=== PATIENT | male | born 1935 | race Caucasian/White ===

== ENCOUNTER 2016-08-11 08:23 | Inpatient (IN) | payer MEDICARE, OTHER ==
[2016-08-10] MEDS: INSULIN ASPART SUPPLEMENTAL SCALE SQ SCH (00:30)
[2016-08-11] VITALS (18 sets, daily range): BP systolic 108–152; BP diastolic 47–88; PULSE 60–118; RESP 16–20; TEMP 97.9–98.2; O2SAT 97–100
[~2016-08-11] VITALS: Ht 170.2 cm; Wt 59.8 kg
[2016-08-11] MEDS ORDERED: BENA20TA4 PO (08:41)
[2016-08-11] MEDS ORDERED: ALBUAER3 INH (08:41)
[2016-08-11] MEDS ORDERED: GLYB1TAB94 PO (08:41)
[2016-08-11] MEDS ORDERED: ROSU10 PO (08:41)
[2016-08-11] MEDS ORDERED: FERR1TAB36 PO (08:41)
[2016-08-11] MEDS ORDERED: LEVE500 PO (08:41)
[2016-08-11] MEDS ORDERED: TRAD5TAB PO (08:41)
[2016-08-11] MEDS ORDERED: TAMS0.4C4 PO (08:41)
[2016-08-11] MEDS ORDERED: NAPR500T PO (08:41)
[2016-08-11] MEDS ORDERED: NEXI40CA PO (08:41)
[2016-08-11] MEDS ORDERED: ASPI81CH CHEW (08:41)
[2016-08-11] MEDS ORDERED: KETOROLAC TROMETHAMINE 30 MG/ML (IVP) VIAL IV PUSH ONE (08:45)
--- NOTE | 2016-08-11 08:45 | PD ---
HPI Chief Complaint: Fall Time Seen by Provider: 08:27 Travel History International Travel<30 days: No Contact w/Intl Traveler<30days: No Traveled to known affect area: No History of Present Illness HPI The patient is a 80-year-old male who presents emergency department via EMS after a fall at home. 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 The patient does have a history of chronic vertigo/dizziness, however, this morning lost his balance and fell 4 striking his head. According to EMS patient had no loss consciousness but complained of neck pain. The patient does have a history of chronic low back pain without any acute changes, according to EMS. The patient does complain of pain located over the posterior aspect of the neck that radiates into the left shoulder. He denies any chest pain, shortness breath, nausea, vomiting, or abdominal pain. Symptoms are moderate, exacerbated after falling, there are no current alleviating factors. PFSH Past Medical History Narrative Medical Hypertension, GERD, hyperlipidemia, diabetes Past Surgical History Narrative Surgical Noncontributory Social History Tobacco Use: No Allergies-Medications (Allergen,Severity, Reaction): Coded Allergies: Penicillin (Verified Allergy, Unknown, 08/11/16) Sudafed (Verified Allergy, Unknown, 08/11/16) Reported Meds & Prescriptions Reported Meds & Active Scripts Active Reported Meclizine (Meclizine HCl) 25 Mg Tab 25 Mg PO BID PRN Ativan (Lorazepam) 0.5 Mg Tab 0.5 Mg PO HS Pioglitazone (Pioglitazone HCl) 45 Mg Tab 45 Mg PO DAILY Tramadol (Tramadol HCl) 50 Mg Tab 50 Mg PO BID Pataday Opth Drops (Olopatadine HCl) 0.2 % Drops 1 Drop EACH EYE DAILY Zoloft (Sertraline HCl) 50 Mg Tab 50 Mg PO HS Metoprolol Tartrate 25 Mg Tab 25 Mg PO DAILY Proair Hfa 8.5 GM Inh (Albuterol Sulfate) 90 Mcg/Act Aer 2 Puff INH Q4-6H PRN 108 mcg/actuation Iron (Ferrous Sulfate) 325 Mg Tab 325 Mg PO DAILY Take Naproxen 500 Mg Tab 500 Mg PO BID Tamsulosin (Tamsulosin HCl) 0.4 Mg Cap 0.4 Mg PO HS Keppra (Levetiracetam) 500 Mg Tab 500 Mg PO BID Benazepril-Hydrochlorothiazide 20-25 Mg Tab 1 Tab PO DAILY Aspirin 81 Mg Chew 81 Mg CHEW DAILY Glyburide-Metformin 5-500 Mg Tab 2 Tab PO BID Take with a meal Crestor (Rosuvastatin Calcium) 10 Mg Tab 10 Mg PO DAILY Tradjenta (Linagliptin) 5 Mg Tab 5 Mg PO DAILY Nexium (Esomeprazole DR) 40 Mg Capdr 40 Mg PO DAILY Review of Systems Except as stated in HPI: all other systems reviewed are Neg HENT: Positive: Neck Pain, No: Headaches Cardiovascular: No: Chest Pain or Discomfort Respiratory: No: Shortness of Breath Gastrointestinal: No: Nausea, Vomiting, Abdominal Pain Musculoskeletal: Positive: Pain (chronic back pain) Physical Exam Narrative GENERAL: Awake, alert, 80-year-old male who appears his stated age and is in no acute respiratory distress. Patient initially was evaluated on a backboard with cervical collar in place. SKIN: Focused skin assessment warm/dry. HEAD: Atraumatic. Normocephalic. EYES: Pupils equal and round. No scleral icterus. No injection or drainage. ENT: No nasal bleeding or discharge. Mucous membranes pink and moist. NECK: Trachea midline. No JVD. Cervical collar in place. Tender along the paravertebral muscles and midline of the cervical spine. CARDIOVASCULAR: Irregularly irregular, tachycardic with a heart rate in the 140s. RESPIRATORY: No accessory muscle use. Clear to auscultation. Breath sounds equal bilaterally. GASTROINTESTINAL: Abdomen soft, non-tender, nondistended. No rebound tenderness. MUSCULOSKELETAL: No obvious deformities. No clubbing. No cyanosis. No edema. I'm able to fully flex and extend the upper and lower extremities passively. Blower Mechanic strength is 5 out of 5. Plantar flexion is 5 out of 5. Back: Mild tenderness mid thoracic region. No tenderness of the lumbar region. NEUROLOGICAL: Awake and alert. No obvious cranial nerve deficits. Motor grossly within normal limits. Normal speech. Thai-speaking. Follows commands without difficulty. PSYCHIATRIC: Appropriate mood and affect; insight and judgment normal. Data Data Last Documented VS Vital Signs Date Time Temp Pulse Resp B/P Pulse Ox O2 Delivery O2 Flow Rate FiO2 08/11/16 09:57 94 17 134/76 97 Room Air 08/11/16 08:[address] Cerv Spine W/O Contrast (08/11/16 ) Ct Brain W/O Iv Contrast(Rout) (08/11/16 ) Chest, Single Ap (08/11/16 ) Spine, Thoracic - Lateral Only (08/11/16 ) Pelvis, Ap Only (Routine) (08/11/16 ) Complete Blood Count With Diff (08/11/16 08:33) Basic Metabolic Panel (Bmp) (08/11/16 08:33) Electrocardiogram (08/11/16 ) Ketorolac Inj (Toradol Inj) (08/11/16 08:45) Magnesium (Mg) (08/11/16 08:48) Hepatic Functional Panel (08/11/16 08:48) Troponin I (08/11/16 08:48) Creatine Kinase (Cpk) (08/11/16 08:48) Diltiazem Inj (Cardizem Inj) (08/11/16 09:00) Diltiazem Inj (Cardizem Inj) (08/11/16 09:00) Sodium Chloride 0.9% Flush (Ns Flush) (08/11/16 09:00) Admit Order (Ed Use Only) (08/11/16 10:34) Labs Laboratory Tests Test 08/11/16 08:50 White Blood Count 6.0 TH/MM3 Red Blood Count 3.01 MIL/MM3 Hemoglobin 8.8 GM/DL Hematocrit 25.6 % Mean Corpuscular Volume 85.2 FL Mean Corpuscular Hemoglobin 29.1 PG Mean Corpuscular Hemoglobin 34.1 % Concent Red Cell Distribution Width 14.1 % Platelet Count 282 TH/MM3 Mean Platelet Volume 8.5 FL Neutrophils (%) (Auto) 80.9 % Lymphocytes (%) (Auto) 10.7 % Monocytes (%) (Auto) 7.5 % Eosinophils (%) (Auto) 0.5 % Basophils (%) (Auto) 0.4 % Neutrophils # (Auto) 4.8 TH/MM3 Lymphocytes # (Auto) 0.6 TH/MM3 Monocytes # (Auto) 0.4 TH/MM3 Eosinophils # (Auto) 0.0 TH/MM3 Basophils # (Auto) 0.0 TH/MM3 CBC Comment DIFF FINAL Differential Comment Sodium Level 133 MEQ/L Potassium Level 4.0 MEQ/L Chloride Level 97 MEQ/L Carbon Dioxide Level 26.1 MEQ/L Anion Gap 10 MEQ/L Blood Urea Nitrogen 19 MG/DL Creatinine 1.04 MG/DL Estimat Glomerular Filtration 69 ML/MIN Rate Random Glucose 86 MG/DL Calcium Level 9.5 MG/DL Magnesium Level 1.6 MG/DL Total Bilirubin 0.3 MG/DL Direct Bilirubin 0.1 MG/DL Indirect Bilirubin 0.2 MG/DL Aspartate Amino Transf 21 U/L (AST/SGOT) Alanine Aminotransferase 16 U/L (ALT/SGPT) Alkaline Phosphatase 55 U/L Total Creatine Kinase 114 U/L Troponin I LESS THAN 0.02 NG/ML Total Protein 7.4 GM/DL Albumin 4.4 GM/DL MDM Medical Decision Making Medical Screen Exam Complete: Yes Emergency Medical Condition: Yes Medical Record Reviewed: Yes Interpretation(s) EKG reveals atrial flutter with RVR, rate 153. RSR prime in V1 consistent with a right bundle-branch block, QRS duration 146 ms. Laboratory Tests Test 08/11/16 08:50 White Blood Count 6.0 TH/MM3 Red Blood Count 3.01 MIL/MM3 Hemoglobin 8.8 GM/DL Hematocrit 25.6 % Mean Corpuscular Volume 85.2 FL Mean Corpuscular Hemoglobin 29.1 PG Mean Corpuscular Hemoglobin 34.1 % Concent Red Cell Distribution Width 14.1 % Platelet Count 282 TH/MM3 Mean Platelet Volume 8.5 FL Neutrophils (%) (Auto) 80.9 % Lymphocytes (%) (Auto) 10.7 % Monocytes (%) (Auto) 7.5 % Eosinophils (%) (Auto) 0.5 % Basophils (%) (Auto) 0.4 % Neutrophils # (Auto) 4.8 TH/MM3 Lymphocytes # (Auto) 0.6 TH/MM3 Monocytes # (Auto) 0.4 TH/MM3 Eosinophils # (Auto) 0.0 TH/MM3 Basophils # (Auto) 0.0 TH/MM3 CBC Comment DIFF FINAL Differential Comment Sodium Level 133 MEQ/L Potassium Level 4.0 MEQ/L Chloride Level 97 MEQ/L Carbon Dioxide Level 26.1 MEQ/L Anion Gap 10 MEQ/L Blood Urea Nitrogen 19 MG/DL Creatinine 1.04 MG/DL Estimat Glomerular Filtration 69 ML/MIN Rate Random Glucose 86 MG/DL Calcium Level 9.5 MG/DL Magnesium Level 1.6 MG/DL Total Bilirubin 0.3 MG/DL Direct Bilirubin 0.1 MG/DL Indirect Bilirubin 0.2 MG/DL Aspartate Amino Transf 21 U/L (AST/SGOT) Alanine Aminotransferase 16 U/L (ALT/SGPT) Alkaline Phosphatase 55 U/L Total Creatine Kinase 114 U/L Troponin I LESS THAN 0.02 NG/ML Total Protein 7.4 GM/DL Albumin 4.4 GM/DL CT of the brain reveals negative trauma CT. Post surgical changes are noted. CT cervical spine reveals negative trauma CT. Last Impressions Thoracic Spine X-Ray 08/11/16 0000 Signed Impressions: Service Date/Time: Thursday, August 11, 2016 09:27 - CONCLUSION: 1. Mild compression fracture deformity of the T7 vertebral body of indeterminate age. There is no retropulsion. 2. Osteopenia and minimal degenerative change. Mateo Alberts MD Pelvis X-Ray 08/11/16 0000 Signed Impressions: Service Date/Time: Thursday, August 11, 2016 09:23 - CONCLUSION: Negative trauma study. Mateo Alberts MD Head CT 08/11/16 0000 Signed Impressions: Service Date/Time: Thursday, August 11, 2016 09:38 - CONCLUSION: Negative trauma CT. Postsurgical changes are noted. Mateo Alberts MD Chest X-Ray 08/11/16 0000 Signed Impressions: Service Date/Time: Thursday, August 11, 2016 09:24 - CONCLUSION: No acute disease. Mateo Alberts MD Cervical Spine CT 08/11/16 0000 Signed Impressions: Service Date/Time: Thursday, August 11, 2016 09:38 - CONCLUSION: Negative trauma CT. Mateo Alberts MD Differential Diagnosis Differential diagnosis includes mechanical fall, closed head injury, joint cranial hemorrhage, cervical fracture, thoracic spine fracture, pelvic rami fracture, hyponatremia, dehydration, mechanical fall, A. fib with RVR, syncope, arrhythmia. Narrative Course The patient was log rolled off the backboard, back was inspected. Cervical collar was maintained. IV was established, labs are drawn and sent, and the patient was placed on cardiac telemetry monitoring and continuous pulse oximetry monitoring. The patient was administered Toradol 50 mg intravenously for pain. CT of the brain and cervical spine were ordered. X-ray of the chest , thoracic spine, and pelvis were ordered. Patient was placed on a monitor, patient's heart rate was in the 140s, appeared to be A. fib with RVR. EKG was ordered and interpreted. Patient was administered Cardizem 15 mg intravenously and placed on a Cardizem drip. The patient's heart rate maintained between 90 and [address] the brain and cervical spine are negative except for postoperative changes of the brain. X-rays are unremarkable, except for old appearing compression fracture in the thoracic region. Patient does have a history of previous craniotomy, appears remote, therefore, patient was administered aspirin a were milligrams orally. The on-call medical service was paged for admission. I had a discussion with the son, he states the patient's surgery was performed last year in [place]. The patient does take a baby aspirin daily. After discussion with the patient, he does not believe the patient has a history of atrial fibrillation, appears to be new onset A. fib. The patient will need echocardiogram. The patient will also need a discussion about anticoagulation, aspirin versus Coumadin/Pradaxa/eliquis/Xarelto, unsure if patient is a candidate for further anticoagulation with history of craniotomy. I discussed the patient with Dr. Arguello, patient will be admitted to the teaching service. Critical Care Narrative Aggregate critical care time was 45 minutes. Time to perform other separately billable procedures was not included in the critical care time. My time did not include minutes spent treating any other patients simultaneously or on activities that did not directly contribute to the patient's treatment. The services I provided to this patient were to treat and/or prevent clinically significant deterioration that could result in: Anoxia, hypoxia, arrhythmia, to just heart failure, cardiomyopathy. I provided critical care services requiring my management, as noted below: Chart data review, documentation time, medication orders and management, vital sign assessments/reviewing monitor data, ordering and reviewing lab tests, ordering and interpreting/reviewing x-rays and diagnostic studies, care of the patient and discussion of the patient with the admitting physicians. Physician Communication Physician Communication The on-call medical service was paged for admission. I discussed the patient with Dr. Arguello who agrees with admission. Diagnosis Primary Impression: Atrial fibrillation with RVR Additional Impressions: Fall Qualified Code: W19.XXXA - Fall, initial encounter Neck pain Admitting Information Admitting Physician Requests: Admit Condition: Stable Av Wesley MD Aug 11, 2016 08:45
[2016-08-11] MEDS ORDERED: SODIUM CHLORIDE 0.9% FLUSH 10 ML FLUSH IVF PRN (09:00)
[2016-08-11] MEDS ORDERED: DILTIAZEM INJ 125 MG in SODIUM CHLORIDE 0.9% INJ 100 ML IV SCH (09:00)
[2016-08-11] MEDS ORDERED: DILTIAZEM HCL 25 MG/5 ML VIAL IV ONE (09:00)
[2016-08-11 09:11] LABS: AUTOMATED NEUTROPHIL # 4.8 TH/MM3 (1.8-7.7); BASOPHIL % 0.4 % (0.0-2.0); EOSINOPHIL % 0.5 % (0.0-4.0); HEMATOCRIT 25.6 % (39.0-51.0); HEMO FLAGS DIFF FINAL; LYMPH % 10.7 % (9.0-44.0); LYMPHOCYTE # 0.6 TH/MM3 (1.0-4.8); MEAN CELL VOLUME 85.2 FL (80.0-100.0); MEAN CORPUSCULAR HEMOGLOBIN 29.1 PG (27.0-34.0); MEAN CORPUSCULAR HGB CONC 34.1 % (32.0-36.0); MONO % 7.5 % (0.0-8.0); NEUT % 80.9 % (16.0-70.0); PLATELET COUNT 282 TH/MM3 (150-450); RED BLOOD COUNT 3.01 MIL/MM3 (4.50-5.90); RED CELL DISTRIBUTION WIDTH 14.1 % (11.6-17.2)
[2016-08-11 09:29] LABS: BICARBONATE 26.1 MEQ/L (21.0-32.0)
[2016-08-11] MEDS ORDERED: MECL-62 PO (09:29)
[2016-08-11] MEDS ORDERED: LORA-392 PO (09:29)
[2016-08-11] MEDS ORDERED: ZOLO50TA PO (09:29)
[2016-08-11] MEDS ORDERED: PIOG45TA3 PO (09:29)
[2016-08-11] MEDS ORDERED: METO25TA3 PO (09:29)
[2016-08-11] MEDS ORDERED: PATA0.2S EACH EYE (09:29)
[2016-08-11] MEDS ORDERED: POTA10TA2 PO (09:29)
[2016-08-11] MEDS ORDERED: TRAM50TA PO (09:29)
[2016-08-11 09:39] LABS: ALKALINE PHOSPHATASE 55 U/L (45-117); ALT (GPT) 16 U/L (12-78); AST (GOT) 21 U/L (15-37); CREATINE KINASE 114 U/L (39-308); INDIRECT BILIRUBIN 0.2 MG/DL (0.0-0.8); MAGNESIUM 1.6 MG/DL (1.5-2.5); TOTAL BILIRUBIN ADULT 0.3 MG/DL (0.2-1.0)
--- NOTE | 2016-08-11 10:04 | EKG ---
Date Performed: 08/11/2016 Time Performed: 08:52:11 PTAGE: 80 years EKG: ProbableATRIAL FLUTTER/TACHYCARDIA WITH RAPID VENTRICULAR RESPONSE RIGHT BUNDLE BRANCH BLO CK ABNORMAL ECG NO PREVIOUS TRACING DOCTOR: Timothy Garrido Interpretating Date/Time 08/11/2016 10:03:41
--- NOTE | 2016-08-11 10:07 | RADRPT ---
EXAM DATE/TIME: 08/11/2016 09:38 [facility] COMPARISON: No previous studies available for comparison. INDICATIONS : Fall, hit head and states neck pain. RADIATION DOSE: 36.65 CTDIvol (mGy) MEDICAL HISTORY : Unknown SURGICAL HISTORY : Unknown ENCOUNTER: Initial ACUITY: 1 day PAIN SCALE: 3/10 LOCATION: cranial TECHNIQUE: Multiple contiguous axial images were obtained of the head. Using automated exposure control and adj ustment of the mA and/or kV according to patient size, radiation dose was kept as low as reasonably a chievable to obtain optimal diagnostic quality images. FINDINGS: CEREBRUM: The ventricles are normal for age. No evidence of midline shift, mass lesion, hemorrhage or acute in farction. No extra-axial fluid collections are seen. POSTERIOR FOSSA: The cerebellum and brainstem are intact. The 4th ventricle is midline. The cerebellopontine angle i s unremarkable. EXTRACRANIAL: The visualized portion of the orbits is intact. SKULL: The calvaria is intact. No evidence of skull fracture. The patient is status post left frontal parie taqueria craniotomy. CONCLUSION: Negative trauma CT. Postsurgical changes are noted. Mateo Alberts MD on August 11, 2016 at 10:01 Board Certified Radiologist. This report was verified electronically.
--- NOTE | 2016-08-11 10:09 | RADRPT ---
EXAM DATE/TIME: 08/11/2016 09:38 [facility] COMPARISON: No previous studies available for comparison. INDICATIONS : Fall, hit head and states neck pain. RADIATION DOSE: 17.78 CTDIvol (mGy) MEDICAL HISTORY : Unknown SURGICAL HISTORY : Unknown ENCOUNTER: Initial ACUITY: 1 day PAIN SCALE: 3/10 LOCATION: neck TECHNIQUE: Volumetric scanning of the cervical spine was performed. Multiplanar reconstructions in the sagittal, coronal and oblique axial planes were performed. Using automated exposure control and adjustment o f the mA and/or kV according to patient size, radiation dose was kept as low as reasonably achievable to obtain optimal diagnostic quality images. FINDINGS: The sagittal reconstructions demonstrate normal alignment and normal prevertebral soft tissues. The d ens is intact and there is a normal atlantoaxial relationship. Degenerative changes present at the C6 -7 level with disc space narrowing and mild hypertrophic change. There are degenerative changes invol ving the left axilla joint. The axial images demonstrate that the vertebral bodies and posterior elements are intact. The soft ti ssues are within normal limits. There is no evidence of acute fracture or malalignment. CONCLUSION: Negative trauma CT. Mateo Alberts MD on August 11, 2016 at 10:06 Board Certified Radiologist. This report was verified electronically.
--- NOTE | 2016-08-11 10:58 | HHI.HP ---
[facility] Service Family Medicine Primary Care Physician Rosaline Hodge M.D. Admission Diagnosis A. cliff with RVR, neck pain, mechanical fall Diagnoses: International Travel<30 Days: No Contact w/Intl Traveler<30days: No Known Affected Area: No History of Present Illness 80-year-old German-speaking male with history of diabetes, asthma, history of convulsions, presents to [place] after falling. Patient is a poor historian. Son is at the bedside and provides additional history. Patient fell after waking up this morning around 7:30 AM. He was laying in bed, he felt normal. After taking 2 steps toward the bathroom, he started to feel dizzy. He states he felt like his heart was racing. He was able to make it an additional 10-13 steps were collapsing. He put his hands in front of him to brace him from the fall. Denies losing consciousness. No bowel or bladder incontinence. No tongue biting. On the ground, he called 911. He was only on the ground for only a few moments before getting up and walking to the kitchen. In the kitchen , he took 2 puffs from his asthma inhaler and drank some cold water. He was feeling normal during this time. He is , however he lives by himself and no one witnessed this event. He denies any tremors or seizure-like activity. He had a similar episode a week or 2 ago where he felt dizzy, and then he recovered to his normal self. He does report hitting his head. He does have mild pain on the back of his neck radiating to his left shoulder. However, he denies chest pain, shortness of breath, nausea, vomiting, fever, chills, abdominal pain. (Montrell Arguello MD R2) Review of Systems ROS Limitations: Poor Historian Constitutional: DENIES: Fever, Chills Eyes: DENIES: Blurred vision, Diplopia Ears, nose, mouth, throat: COMPLAINS OF: Vertigo, DENIES: Running Nose Respiratory: COMPLAINS OF: Shortness of breath, DENIES: Cough Cardiovascular: COMPLAINS OF: Palpitations, Syncope, DENIES: Chest pain Gastrointestinal: DENIES: Abdominal pain, Black stools, Bloody stools, Constipation, Diarrhea, Nausea, Vomiting (Montrell Arguello MD R2) Past Family Social History Past Medical History Poor historian, not sure about meds or medical history; reviewed meds with patient and son extensively Diabetes Hyperlipidemia Hypertension BPH-on Flomax for 10 years History of convulsions (sees neurologist)-prescribed Keppra Iron deficiency anemia GERD Asthma Past Surgical History Cataract [place] hole (? subdural?)- 2012 Right shoulder (? - 2000) Reported Medications Patient is a poor historian, he brings in a bag of medications but he is not sure what each medication is for. Additionally, he states he left some of his bottles at home. Reported Meds & Active Scripts Active Reported Meclizine (Meclizine HCl) 25 Mg Tab 25 Mg PO BID PRN- NOT TAKING Ativan (Lorazepam) 0.5 Mg Tab 0.5 Mg PO HS- NOT TAKING Pioglitazone (Pioglitazone HCl) 45 Mg Tab 45 Mg PO DAILY- UNSURE if taking Tramadol (Tramadol HCl) 50 Mg Tab 50 Mg PO BID- Pataday Opth Drops (Olopatadine HCl) 0.2 % Drops 1 Drop EACH EYE DAILY Zoloft (Sertraline HCl) 50 Mg Tab 50 Mg PO HS- UNSURE Metoprolol Tartrate 25 Mg Tab 25 Mg PO DAILY-unsure if taking Proair Hfa 8.5 GM Inh (Albuterol Sulfate) 90 Mcg/Act Aer 2 Puff INH Q4-6H PRN 108 mcg/actuation Iron (Ferrous Sulfate) 325 Mg Tab 325 Mg PO DAILY Take Naproxen 500 Mg Tab 500 Mg PO BID- NOT TAKING Tamsulosin (Tamsulosin HCl) 0.4 Mg Cap 0.4 Mg PO HS- Keppra (Levetiracetam) 500 Mg Tab 500 Mg PO BID Benazepril-Hydrochlorothiazide 20-25 Mg Tab 1 Tab PO DAILY Aspirin 81 Mg Chew 81 Mg CHEW DAILY Glyburide-Metformin 5-500 Mg Tab 2 Tab PO BID Take with a meal Crestor (Rosuvastatin Calcium) 10 Mg Tab 10 Mg PO DAILY Tradjenta (Linagliptin) 5 Mg Tab 5 Mg PO DAILY Nexium (Esomeprazole DR) 40 Mg Capdr 40 Mg PO DAILY (Montrell Arguello MD R2) Allergies: Coded Allergies: Penicillin (Verified Allergy, Unknown, 08/11/16) Sudafed (Verified Allergy, Unknown, 08/11/16) Sulfa (Verified Allergy, Unknown, 08/11/16) Active Ordered Medications Active Medications Diltiazem HCl 15 mg 15 mg ONCE ONCE IV Last administered on 08/11/16 09:12; Admin Dose 15 MG; Start 08/11/16 at 09:00; Stop 08/11/16 at 09:01; Status DC Diltiazem HCl/ Sodium Chloride (Cardizem Inj/NS Inj) 125 ml @ 5 mls/hr TITRATE IV Last administered on 08/11/16 10:07; Admin Dose 5 MLS/HR; Start 08/11/16 at 09:00 Ketorolac Tromethamine (Toradol Inj) 15 mg ONCE ONCE IV PUSH Last administered on 08/11/16 09:12; Admin Dose 15 MG; Start 08/11/16 at 08:45; Stop 08/11/16 at 08:46; Status DC Sodium Chloride (NS Flush) 2 ml UNSCH PRN IVF Last administered on 08/11/16 09 :13; Admin Dose 2 ML; Start 08/11/16 at 09:00 Family History Dad- no hx of heart disease or cancer Mom-no history of heart disease Social History Recently moved here 4 months ago from [place]. Tobacco: Quit 20 years ago. Smoked 1 pack per age 17. Alcohol: None Illicits: None (Montrell Arguello MD R2) Physical Exam Vital Signs Vital Signs Date Time Temp Pulse Resp B/P Pulse Ox O2 Delivery O2 Flow Rate FiO2 08/11/16 10:49 97 16 108/55 98 Room Air 08/11/16 10:41 18 08/11/16 09:57 94 17 134/76 97 Room Air 08/11/16 09:40 91 08/11/16 08:42 98.1 118 17 152/80 97 Room Air Physical Exam GENERAL: This is a well-nourished, well-developed patient, in no apparent distress. SKIN: No rashes, ecchymoses or lesions. Cool and dry. HEAD: Atraumatic. Normocephalic. No temporal or scalp tenderness. EYES: Pupils equal round and reactive. Extraocular motions intact. No scleral icterus. No injection or drainage. ENT: Nose without bleeding, purulent drainage or septal hematoma. Throat without erythema, tonsillar hypertrophy or exudate. Uvula midline. Airway patent. NECK: Trachea midline. No JVD or lymphadenopathy. Supple, nontender, no meningeal signs. CARDIOVASCULAR: Regular rate and irregular rhythm RESPIRATORY: Clear to auscultation. Breath sounds equal bilaterally. No wheezes , rales, or rhonchi. GASTROINTESTINAL: Abdomen soft, non-tender, nondistended. No hepato-splenomegaly , or palpable masses. No guarding. MUSCULOSKELETAL: Extremities without clubbing, cyanosis, or edema. No joint tenderness, effusion, or edema noted. No calf tenderness. Negative Homans sign bilaterally. NEUROLOGICAL: Awake and alert. Cranial nerves II through XII intact. Motor and sensory grossly within normal limits. Five out of 5 muscle strength in all muscle groups. Normal speech. Laboratory Laboratory Tests Test 08/11/16 08:50 White Blood Count 6.0 Red Blood Count 3.01 Hemoglobin 8.8 Hematocrit 25.6 Mean Corpuscular Volume 85.2 Mean Corpuscular Hemoglobin 29.1 Mean Corpuscular Hemoglobin 34.1 Concent Red Cell Distribution Width 14.1 Platelet Count 282 Mean Platelet Volume 8.5 Neutrophils (%) (Auto) 80.9 Lymphocytes (%) (Auto) 10.7 Monocytes (%) (Auto) 7.5 Eosinophils (%) (Auto) 0.5 Basophils (%) (Auto) 0.4 Neutrophils # (Auto) 4.8 Lymphocytes # (Auto) 0.6 Monocytes # (Auto) 0.4 Eosinophils # (Auto) 0.0 Basophils # (Auto) 0.0 CBC Comment DIFF FINAL Differential Comment Sodium Level 133 Potassium Level 4.0 Chloride Level 97 Carbon Dioxide Level 26.1 Anion Gap 10 Blood Urea Nitrogen 19 Creatinine 1.04 Estimat Glomerular Filtration 69 Rate Random Glucose 86 Calcium Level 9.5 Magnesium Level 1.6 Total Bilirubin 0.3 Direct Bilirubin 0.1 Indirect Bilirubin 0.2 Aspartate Amino Transf 21 (AST/SGOT) Alanine Aminotransferase 16 (ALT/SGPT) Alkaline Phosphatase 55 Total Creatine Kinase 114 Troponin I LESS THAN 0.02 Total Protein 7.4 Albumin 4.4 (Montrell Arguello MD R2) Result Diagram: 08/11/16 0850 08/11/16 0850 Imaging Last Impressions Thoracic Spine X-Ray 08/11/16 0000 Signed Impressions: Service Date/Time: Thursday, August 11, 2016 09:27 - CONCLUSION: 1. Mild compression fracture deformity of the T7 vertebral body of indeterminate age. There is no retropulsion. 2. Osteopenia and minimal degenerative change. Mateo Alberts MD Pelvis X-Ray 08/11/16 Signed Impressions: Service Date/Time: Thursday, August 11, 2016 09:23 - CONCLUSION: Negative trauma study. Mateo Alberts MD Head CT 08/11/16 Signed Impressions: Service Date/Time: Thursday, August 11, 2016 09:38 - CONCLUSION: Negative trauma CT. Postsurgical changes are noted. Mateo Alberts MD Chest X-Ray 08/11/16 Signed Impressions: Service Date/Time: Thursday, August 11, 2016 09:24 - CONCLUSION: No acute disease. Mateo Alberts MD Cervical Spine CT 08/11/16 Signed Impressions: Service Date/Time: Thursday, August 11, 2016 09:38 - CONCLUSION: Negative trauma CT. Mateo Alberts MD (Montrell Arguello MD R2) Assessment and Plan Assessment and Plan 80-year-old male with new onset atrial fibrillation. Treatment as below Code Status Full Discussed Condition With Dr. Felix (Montrell Arguello MD R2) Attending Attestation THIS CASE WAS DISCUSSED WITH THE RESIDENT PHYSICIANS. I HAVE REVIEWED THE RECORD AND AGREE WITH THE ABOVE NOTE AND PLAN OF CARE WAS DISCUSSED. I HAVE AUTHORIZED THE ORDER FOR ADMISSION TO AN IN-PATIENT STATUS. (Srini Felix MD) Problem List: (1) Atrial fibrillation with RVR Status: Acute Plan: New onset. According to history, patient may have had episode of atrial fibrillation earlier in the week as well. Consult cardiology Rate currently controlled on diltiazem drip. Therapeutic Lovenox 70 mg every 12 hours Troponin less than 0.02, will trend. [id number] score 4 (high risk). Hypertension, age greater than 75, diabetes, male gender Obtain labs: TSH, thyroxine, lipid panel (2) Fall Status: Acute Plan: Imaging reviewed. Negative CT cervical spine. Negative chest x-ray. Negative head CT. Negative pelvis x-ray. Thoracic T-spine x-ray shows mild compression fracture deformity of the T7 vertebral body of indeterminate age. PT consult after improvement of acute atrial fibrillation. (3) Anemia Status: Acute Plan: History of iron deficiency anemia. Hemoglobin 8.8 on admission Obtain iron studies Hemoccult Continue home ferrous sulfate (4) FEN/PPX Status: Acute Plan: Fluids: tolerating PO Electrolytes: monitor and replace prn Nutrition: heart healthy diet PPX: lovenox as above Chronic Medical problems: DM: Hold home by mouth medications. Cover with sliding scale insulin while in hospital. Consider long-acting insulin pending Accu-Cheks. Fe def Anemia: Continue iron as above. Seizure disorder: Continue Keppra 500 mg by mouth twice a day Chronic pain: Continue home tramadol Asthma: Continue home albuterol. 2 puffs every 4 hours when necessary shortness of breath BPH: Continue Flomax 0.4 mg by mouth at bedtime Depression: Continue on Zoloft 50 mg by mouth at bedtime Hypertension: Diltiazem drip as above. Currently continuing home medication benzapril/hctz (Hold for hypotensive) GERD: Continue Protonix 40 mg by mouth daily Hyperlipidemia: Continue Lipitor 20 mg by mouth at bedtime (Montrell Arguello MD R2) Physician Certification 2 Midnight Certification Type: Admission for Inpatient Services Order for Inpatient Services The services are ordered in accordance with Medicare regulations or non- Medicare payer requirements, as applicable. In the case of services not specified as inpatient-only, they are appropriately provided as inpatient services in accordance with the 2-midnight benchmark. Estimated LOS (days): 2 days is the estimated time the patient will need to remain in the hospital, assuming treatment plan goals are met and no additional complications. Post-Hospital Plan: Not yet determined (Montrell Arguello MD R2) Problem Qualifiers (1) Fall: Qualified Code: W19.XXXA - Fall, initial encounter (2) Anemia: Qualified Code: D64.9 - Anemia, unspecified type Montrell Arguello MD R2 Aug 11, 2016 10:58 Srini Felix MD Aug 11, 2016 15:35
--- NOTE | 2016-08-11 11:11 | RADRPT ---
EXAM DATE/TIME: 08/11/2016 09:24 [facility] COMPARISON: No previous studies available for comparison. INDICATIONS : Fell today. MEDICAL HISTORY : None. SURGICAL HISTORY : None. ENCOUNTER: Initial ACUITY: 1 day PAIN SCORE: 0/10 LOCATION: Bilateral chest FINDINGS: A single view of the chest demonstrates the lungs to be symmetrically aerated without evidence of mas s, infiltrate or effusion. The cardiomediastinal contours are unremarkable. Osseous structures are intact. CONCLUSION: No acute disease. Mateo Alberts MD on August 11, 2016 at 11:09 Board Certified Radiologist. This report was verified electronically.
--- NOTE | 2016-08-11 11:11 | RADRPT ---
EXAM DATE/TIME: 08/11/2016 09:23 [facility] COMPARISON: No previous studies available for comparison. INDICATIONS : Fell today. MEDICAL HISTORY : None. SURGICAL HISTORY : None. ENCOUNTER: Initial ACUITY: 1 day PAIN SCORE: 2/10 LOCATION: Bilateral pelvis FINDINGS: A single frontal view of the pelvis demonstrates no evidence of fracture. The bony pelvic ring is in tact. Bony mineralization is normal. The soft tissues are intact. CONCLUSION: Negative trauma study. Mateo Alberts MD on August 11, 2016 at 11:04 Board Certified Radiologist. This report was verified electronically.
--- NOTE | 2016-08-11 11:15 | RADRPT ---
EXAM DATE/TIME: 08/11/2016 09:27 [facility] COMPARISON: No previous studies available for comparison. INDICATIONS : Fell today. MEDICAL HISTORY : None. SURGICAL HISTORY : None. ENCOUNTER: Initial ACUITY: 1 day PAIN SCORE: 0/10 LOCATION: Bilateral thoacic spine FINDINGS: 2 lateral views of the thoracic spine were obtained and demonstrate a mild compression fracture defor mity of the T7 vertebral body with slight invagination of the superior endplate. The vertebral bodies appear intact. There is minimal degenerative change and osteopenia. performed. There is normal alig nment of the thoracic vertebral bodies. Vertebral body height is maintained. No evidence of fractur e or subluxation. CONCLUSION: 1. Mild compression fracture deformity of the T7 vertebral body of indeterminate age. There is no ret ropulsion. 2. Osteopenia and minimal degenerative change. Mateo Alberts MD on August 11, 2016 at 11:10 Board Certified Radiologist. This report was verified electronically.
[2016-08-11] MEDS ORDERED: ENOXAPARIN SODIUM 80 MG/0.8 ML SYRINGE SQ SCH (11:45)
[2016-08-11] MEDS ORDERED: SODIUM CHLORIDE 0.9% FLUSH 10 ML FLUSH IV FLUSH PRN (11:45)
[2016-08-11] MEDS ORDERED: ALBUTEROL SULFATE 90 MCG/ACT HFA 8 GM INHALER INH PRN (12:15)
[2016-08-11] MEDS ORDERED: GLUCAGON 1 MG/ML VIAL OTHER PRN (12:15)
[2016-08-11] MEDS ORDERED: ONDANSETRON HCL 4 MG/2 ML VIAL IV PRN (13:15)
[2016-08-11] MEDS ORDERED: hydrALAZINE HCL 10 MG TAB PO PRN (13:15)
[2016-08-11] MEDS ORDERED: ACETAMINOPHEN 325 MG TAB PO PRN (13:15)
[2016-08-11] MEDS ORDERED: DOCUSATE SODIUM 50 MG/SENNA 8.6 MG TAB PO PRN (13:15)
--- NOTE | 2016-08-11 15:34 | HHI.HP ---
[facility] Service Family Medicine Primary Care Physician Rosaline Hodge M.D. Admission Diagnosis A. fib with RVR, neck pain, mechanical fall Diagnoses: (1) Atrial fibrillation with RVR (2) Fall (3) Anemia (4) FEN/PPX International Travel<30 Days: No Contact w/Intl Traveler<30days: No Known Affected Area: No History of Present Illness 80-year-old male presenting to the emergency department after a fall at home. He is Arabic-speaking only and is a relatively poor historian, he is present with his son who provides a lot of the history. Apparently, patient woke up this morning around 7:30 AM and started to walk to the bathroom when he felt dizzy and fell. He does endorse palpitations where he describes it as his "heart racing" prior to the fall. He was able to catch himself from the fall and did not hit his head or lose consciousness. There is no evidence of seizure activity such as bowel or bladder incontinence, tongue biting, or tonic- clonic movement or post ictal state. He was able to call 911 for assistance, and while waiting for EMS he was able to stand up and walk into his kitchen and felt relatively well. He does endorse a similar episode to this approximately 2 weeks ago where he felt dizzy with his heart racing that spontaneously resolved. He is currently chest pain-free and does not feel palpitations. He denies any significant shortness of breath, denies any chest pressure, denies any fevers or chills, denies any nausea/vomiting, denies any abdominal discomfort. Upon arrival to the emergency department he was found to be in atrial fibrillation with RVR Review of Systems Constitutional: COMPLAINS OF: Fatigue, DENIES: Fever, Weight gain, Weight loss , Chills Eyes: DENIES: Blurred vision, Double Vision Respiratory: DENIES: Cough, Wheezing, Shortness of breath Cardiovascular: COMPLAINS OF: Palpitations, Syncope, Dyspnea on Exertion, DENIES: Chest pain, Lower Extremity Edema, Claudication Gastrointestinal: DENIES: Abdominal pain, Bloody stools, Constipation, Diarrhea , Nausea Musculoskeletal: DENIES: Joint pain Past Family Social History Past Medical History Poor historian, not sure about meds or medical history; reviewed meds with patient and son extensively Diabetes Hyperlipidemia Hypertension BPH-on Flomax for 10 years History of convulsions (sees neurologist)-prescribed Keppra Iron deficiency anemia GERD Asthma Past Surgical History Cataract [place] hole (? subdural?)- 2013 Right shoulder (? - 1999) Allergies: Coded Allergies: Penicillin (Verified Allergy, Unknown, 08/11/16) Sudafed (Verified Allergy, Unknown, 08/11/16) Sulfa (Verified Allergy, Unknown, 08/11/16) Family History Dad- no hx of heart disease or cancer Mom-no history of heart disease Social History Recently moved here 4 months ago from [place]. Tobacco: Quit 20 years ago. Smoked 1 pack per age 17. Alcohol: None Illicits: None Physical Exam Vital Signs Vital Signs Date Time Temp Pulse Resp B/P Pulse Ox O2 Delivery O2 Flow Rate FiO2 08/11/16 14:00 98.1 70 20 109/55 100 08/11/16 14:00 72 08/11/16 13:02 115 08/11/16 12:51 100 17 113/55 97 Room Air 08/11/16 11:51 99 18 120/88 97 Room Air 08/11/16 10:49 97 16 108/55 98 Room Air 08/11/16 10:41 18 08/11/16 09:57 94 17 134/76 97 Room Air 08/11/16 09:40 91 08/11/16 08:42 98.1 118 17 152/80 97 Room Air Physical Exam GENERAL: This is a well-nourished, well-developed patient, in no apparent distress. SKIN: No rashes, ecchymoses or lesions. Cool and dry. HEAD: Atraumatic. Normocephalic. NECK: Trachea midline. No JVD or lymphadenopathy. CARDIOVASCULAR: Irregularly irregular rhythm near 100 bpm RESPIRATORY: Clear to auscultation. Breath sounds equal bilaterally. No wheezes , rales, or rhonchi. GASTROINTESTINAL: Abdomen soft, non-tender, nondistended. MUSCULOSKELETAL: Extremities without clubbing, cyanosis, or edema NEUROLOGICAL: Awake and alert. Normal speech. Laboratory Laboratory Tests Test 08/11/16 08:50 White Blood Count 6.0 Red Blood Count 3.01 Hemoglobin 8.8 Hematocrit 25.6 Mean Corpuscular Volume 85.2 Mean Corpuscular Hemoglobin 29.1 Mean Corpuscular Hemoglobin 34.1 Concent Red Cell Distribution Width 14.1 Platelet Count 282 Mean Platelet Volume 8.5 Neutrophils (%) (Auto) 80.9 Lymphocytes (%) (Auto) 10.7 Monocytes (%) (Auto) 7.5 Eosinophils (%) (Auto) 0.5 Basophils (%) (Auto) 0.4 Neutrophils # (Auto) 4.8 Lymphocytes # (Auto) 0.6 Monocytes # (Auto) 0.4 Eosinophils # (Auto) 0.0 Basophils # (Auto) 0.0 CBC Comment DIFF FINAL Differential Comment Sodium Level 133 Potassium Level 4.0 Chloride Level 97 Carbon Dioxide Level 26.1 Anion Gap 10 Blood Urea Nitrogen 19 Creatinine 1.04 Estimat Glomerular Filtration 69 Rate Random Glucose 86 Calcium Level 9.5 Magnesium Level 1.6 Total Bilirubin 0.3 Direct Bilirubin 0.1 Indirect Bilirubin 0.2 Aspartate Amino Transf 21 (AST/SGOT) Alanine Aminotransferase 16 (ALT/SGPT) Alkaline Phosphatase 55 Total Creatine Kinase 114 Troponin I LESS THAN 0.02 Total Protein 7.4 Albumin 4.4 Result Diagram: 08/11/16 0850 08/11/16 0850 Imaging Last Impressions Thoracic Spine X-Ray 08/11/16 0000 Signed Impressions: Service Date/Time: Thursday, August 11, 2016 09:27 - CONCLUSION: 1. Mild compression fracture deformity of the T7 vertebral body of indeterminate age. There is no retropulsion. 2. Osteopenia and minimal degenerative change. Mateo Alberts MD Pelvis X-Ray 08/11/16 0000 Signed Impressions: Service Date/Time: Thursday, August 11, 2016 09:23 - CONCLUSION: Negative trauma study. Mateo Alberts MD Head CT 08/11/16 0000 Signed Impressions: Service Date/Time: Thursday, August 11, 2016 09:38 - CONCLUSION: Negative trauma CT. Postsurgical changes are noted. Mateo Alberts MD Chest X-Ray 08/11/16 0000 Signed Impressions: Service Date/Time: Thursday, August 11, 2016 09:24 - CONCLUSION: No acute disease. Mateo Alberts MD Cervical Spine CT 08/11/16 0000 Signed Impressions: Service Date/Time: Thursday, August 11, 2016 09:38 - CONCLUSION: Negative trauma CT. Mateo Alberts MD Assessment and Plan Assessment and Plan 80-year-old male with new onset atrial fibrillation. Treatment as below Problem List: (1) Atrial fibrillation with RVR Status: Acute Plan: New onset. According to history, patient may have had episode of atrial fibrillation earlier in the week as well. Admitted to the [facility] [place] and monitor on telemetry - Consult cardiology - Rate currently controlled on diltiazem drip. - Therapeutic Lovenox 70 mg every 12 hours - Troponin less than 0.02, will trend. [id number] score 4 (high risk). Hypertension, age greater than 75, diabetes, male gender - Will require anticoagulation prior to discharge Obtain labs: TSH, thyroxine, lipid panel (2) Fall Status: Acute Plan: Imaging reviewed. Negative CT cervical spine. Negative chest x-ray. Negative head CT. Negative pelvis x-ray. Thoracic T-spine x-ray shows mild compression fracture deformity of the T7 vertebral body of indeterminate age. PT consult after improvement of acute atrial fibrillation. (3) Anemia Status: Acute Plan: History of iron deficiency anemia. - Hemoglobin 8.8 on admission - Obtain iron studies and reticulocyte count - Hemoccult - Continue home ferrous sulfate (4) Hypertension Status: Acute Plan: Blood pressure being well controlled currently with diltiazem drip as above - Patient was on benazepril/HCTZ and metoprolol at home, hold home medications and will add them back in as tolerated (5) Diabetes mellitus Status: Acute Plan: Holding home anti-hyperglycemics - Cover with sliding scale while inpatient - Accu checks with vitals (6) Depression Status: Acute Plan: Continue home dose of Zoloft 50 mg daily at bedtime (7) Seizure disorder Status: Acute Plan: Continue home dose of Keppra 500 mg by mouth twice a day (8) FEN/PPX Status: Acute Plan: Fluids: tolerating PO Electrolytes: monitor and replace prn Nutrition: heart healthy diet PPX: lovenox as above Chronic Medical problems: Fe def Anemia: Continue iron as above. Chronic pain: Continue home tramadol Asthma: Continue home albuterol. 2 puffs every 4 hours when necessary shortness of breath BPH: Continue Flomax 0.4 mg by mouth at bedtime GERD: Continue Protonix 40 mg by mouth daily Hyperlipidemia: Continue Lipitor 20 mg by mouth at bedtime Physician Certification 2 Midnight Certification Type: Admission for Inpatient Services Order for Inpatient Services The services are ordered in accordance with Medicare regulations or non- Medicare payer requirements, as applicable. In the case of services not specified as inpatient-only, they are appropriately provided as inpatient services in accordance with the 2-midnight benchmark. Estimated LOS (days): 2 2 days is the estimated time the patient will need to remain in the hospital, assuming treatment plan goals are met and no additional complications. Post-Hospital Plan: Home Problem Qualifiers (1) Fall: Qualified Code: W19.XXXA - Fall, initial encounter (2) Anemia: Qualified Code: D64.9 - Anemia, unspecified type Srini Felix MD Aug 11, 2016 15:34
[2016-08-11] MEDS: DEXTROSE 50% IN WATER 50 ML VIAL(D50) IV PUSH PRN (15:37)
[2016-08-11] MEDS: INSULIN ASPART SUPPLEMENTAL SCALE SQ SCH (15:37)
--- NOTE | 2016-08-11 16:23 | MB ---
cc: ISAAK CAPELLAN DATE OF CONSULTATION: 08/11/2016 HISTORY OF PRESENT ILLNESS: Mr. Diaz is a 80-year-old male with a history of diabetes mellitus, asthma, and convulsions. Went he went to the bathroom this morning, he felt dizzy, his heart was racing and after he kept walking, he collapsed on the floor. He did not lose consciousness. He was brought to the emergency room and was found to have atrial fibrillation with rapid ventricular response. He had a similar episode within the last two weeks with palpitations and dizziness. He has mild pain in his back and into the left shoulder. He has had no chest pain or shortness of breath, nausea or vomiting or peripheral edema. PAST MEDICAL HISTORY: His past medical history is positive for: 1. Diabetes mellitus. 2. Dyslipidemia. 3. Hypertension. 4. Benign prostate hypertrophy. 5. History of seizure disorder. 6. Iron deficiency anemia. 7. Gastroesophageal reflux disease (GERD). 8. Asthma. 9. History of cataract surgery. 10. A bur hole for subdural hematoma in 2012. 11. Right shoulder surgery. MEDICATIONS: His medications include: 1. Nexium. 2. Tradjenta. 3. Crestor. 4. Glyburide. 5. Metformin. 6. Aspirin. 7. Benazepril. 8. Hydrochlorothiazide. 9. Keppra. 10. Tamsulosin. 11. Naproxen. 12. Iron. 13. ProAir. 14. Metoprolol. 15. Zoloft. 16. eye drops. 17. Tramadol. 18. Pioglitazone. 19. Ativan. 20. Meclizine. ALLERGIES: 1. PENICILLIN. 2. SUDAFED. SOCIAL HISTORY: The patient does not smoke. He does not drink alcohol. He moved from [place] several months ago. FAMILY HISTORY: Family history is negative for heart disease. REVIEW OF SYSTEMS: The review of systems is otherwise negative. PHYSICAL EXAMINATION: VITAL SIGNS: Blood pressure 109/55, pulse 72 and regular. HEAD, EYES, EARS, NOSE, THROAT: Negative. NECK: 2+ carotid upstrokes, no bruits. LUNGS: Clear. HEART: Regular with no murmurs, rubs or gallops. ABDOMEN: Abdomen soft. No bruits. EXTREMITIES: Without edema. 2+ distal pulses. NEUROLOGIC: Grossly nonfocal. EKGS: EKG was reviewed and showed atrial fibrillation / flutter with rapid ventricular response and right bundle-branch block. Telemetry now shows sinus rhythm with PACs and PVCs. LABS: Hemoglobin 8.8. Potassium 4.0, creatinine 1.0. AST and ALT normal. Troponin less than 0.02. DIAGNOSIS: 1. Paroxysmal atrial fibrillation / flutter with rapid ventricular response. 2. Recent fall. 3. Iron deficiency anemia. 4. Diabetes mellitus. 5. Hypertension. 6. Dyslipidemia. 7. Seizure disorder. DISPOSITION: The patient will be monitored on telemetry. He is diagnosed with paroxysmal atrial fibrillation / flutter with rapid ventricular response. His [id number] score is increased and we will start him on full anticoagulation with a novel anticoagulant. We will discontinue his aspirin. He will be started on sotalol for maintenance of sinus rhythm. I will follow him for cardiology during his hospitalization. MD ES Ramos/BERT /3:11 PM /4:07 PM EMILIE
[2016-08-11 17:26] LABS: HDL CHOLESTEROL 40.1 MG/DL (40.0-60.0)
--- NOTE | 2016-08-11 19:01 | EC ---
Study Study Date:08/11/2016 STUDY CONCLUSIONS SUMMARY LEFT VENTRICLE: The cavity size was normal. Wall thickness was normal. Systolic function was normal. The estimated ejection fraction was 55%. Wall motion was normal; there were no regional wall motion abnormalities. If LV function is below 40, please consider prescribing an ACEI or ARB or document rationale for non-use. PROCEDURE DATA STUDY STATUS: Elective. Procedure: Transthoracic echocardiography. Image quality was good. Scanning was performed from the parasternal, apical, and subcostal acoustic windows. Study completion: The patient tolerated the procedure well. Transthoracic echocardiography. M-mode, complete 2D, complete spectral Doppler, and color Doppler. Height: Height: 67in. Weight: Weight: 153.7lb. Body mass index: BMI: 24.1kg/m^2. Body surface area: BSA: 1.81m^2. Patient status: Inpatient. CARDIAC ANATOMY LEFT VENTRICLE: The cavity size was normal. Wall thickness was normal. Systolic function was normal. The estimated ejection fraction was 55%. Wall motion was normal; there were no regional wall motion abnormalities. AORTIC VALVE: Trileaflet; normal thickness leaflets. Doppler: Transvalvular velocity was within the normal range. There was no stenosis. No regurgitation. Valve area: 2.4cm^2 (Vmax). Indexed valve area: 1.33cm^2/m^2 (Vmax). AORTA: Aortic root: The aortic root was normal in size. MITRAL VALVE: Structurally normal valve. Doppler: Transvalvular velocity was within the normal range. There was no evidence for stenosis. No regurgitation. Peak gradient: 3mm Hg (D). LEFT ATRIUM: The atrium was normal in size. RIGHT VENTRICLE: The cavity size was normal. Wall thickness was normal. PULMONIC VALVE: Doppler: Transvalvular velocity was within the normal range. There was no evidence for stenosis. No regurgitation. TRICUSPID VALVE: Structurally normal valve. Doppler: Transvalvular velocity was within the normal range. No regurgitation. PULMONARY ARTERY: The main pulmonary artery was normal-sized. Systolic pressure was within the normal range. RIGHT ATRIUM: The atrium was normal in size. PERICARDIUM: There was no pericardial effusion. SYSTEMIC VEINS: Inferior vena cava: The vessel was normal in size. Patient weight: 153.7lb _Ejection fraction:_ 65-75% _Fractional shortening:_ 32% up to 5Kg 5-11.5Kg 11.6-22.9Kg 23-45Kg 45-57Kg Aortic Root 7-13 <17 13-22 17-27 17-27 LA diam 6-13 <23 24-38 33-47 37-40 RVID 10-17 7-15 7-15 7-18 8-17 LVIDd 12-22 <32 24-38 33-47 37-40 LVPW 2-4 3-6 5-7 6-8 7-8 IVS 2-4 3-6 5-7 6-8 7-8 BASIC MEASUREMENTS ADULT NORMAL Left ventricle LV internal dimension, ED, chordal *36.1 mm 43-52 level, PLAX LV internal dimension, ES, chordal 29.5 mm 23-38 level, PLAX Fractional shortening, chordal level, *18 % >29 PLAX LV posterior wall thickness, ED 10.1 mm IVS/LVPW ratio, ED 1 <1.3 Ventricular septum Septal thickness, ED 10.1 mm Aortic valve Leaflet separation *11 mm 15-26 BASIC MEASUREMENTS ADULT NORMAL Aortic valve Leaflet separation *11 mm 15-26 Aorta Root diameter, ED 22 mm 20-37 Left atrium Anterior-posterior dimension, ES 26 mm 19-40 Anterior-posterior dimension index, ES 1.44 cm/m^2 <2.2 LA/aortic root ratio 1.18 DOPPLER MEASUREMENTS ADULT NORMAL Aortic valve Peak velocity, S 155 cm/s Valve area, Vmax 2.4 cm^2 Valve area index, Vmax 1.33 cm^2/m^2 Mitral valve Peak E-wave velocity 91.3 cm/s Peak A-wave velocity 47.4 cm/s Deceleration time *144 ms 150-230 Peak gradient, D 3 mm Hg Peak E/A ratio 1.9 Pulmonic valve Peak velocity, S 124 cm/s LEGEND: Mean values are shown as u=mean value. Asterisk (*) nunez values outside specified normal range. Prepared and signed by Yola Brooke [id number]
[2016-08-11 20:59] LABS: FREE T4 1.13 NG/DL (0.76-1.46); MAGNESIUM 1.7 MG/DL (1.5-2.5); TRANSFERRIN IRON PROFILE 287 MG/DL (200-360)
[2016-08-11] MEDS: traMADol HCL 50 MG TAB PO SCH (21:59)
[2016-08-11] MEDS: SOTALOL HCL 80 MG TAB PO SCH (21:59)
[2016-08-11] MEDS: levETIRAcetam 500 MG TAB PO SCH (21:59)
[2016-08-11] MEDS: SERTRALINE HCL 50 MG TAB PO SCH (21:59)
[2016-08-11] MEDS: TAMSULOSIN HCL 0.4 MG CAP PO SCH (21:59)
[2016-08-11] MEDS: SODIUM CHLORIDE 0.9% FLUSH 10 ML FLUSH IV FLUSH SCH (22:00)
[2016-08-12] VITALS (25 sets, daily range): BP systolic 104–136; BP diastolic 53–67; PULSE 52–68; RESP 16–18; TEMP 97.8–98.5; O2SAT 96–100
[2016-08-12] MEDS: DEXTROSE 50% IN WATER 50 ML VIAL(D50) IV PUSH PRN ×2 (00:34→01:17)
[2016-08-12 06:58] LABS: HEMATOCRIT 22.7 % (39.0-51.0); MEAN CELL VOLUME 85.5 FL (80.0-100.0); MEAN CORPUSCULAR HEMOGLOBIN 28.2 PG (27.0-34.0); PLATELET COUNT 229 TH/MM3 (150-450); RED BLOOD COUNT 2.65 MIL/MM3 (4.50-5.90); REVIEW FLAG FINAL
[2016-08-12 07:00] LABS: BICARBONATE 25.8 MEQ/L (21.0-32.0); POTASSIUM 4.2 MEQ/L (3.5-5.1)
[2016-08-12] MEDS: INSULIN ASPART SUPPLEMENTAL SCALE SQ SCH ×4 (07:00→21:00)
--- NOTE | 2016-08-12 08:47 | HHI.FPPN ---
Subjective Remarks Pt seen and examined this morning. HR down to upper 50-60s and patient in NSR. Endorses some dizziness with standing and intermittent palpitations. Denies CP or SOB. Tolerating PO. Reports he feels weak and is nervous to go home since he lives alone. (Lori Unger MD) Objective Vitals Vital Signs Date Time Temp Pulse Resp B/P Pulse Ox O2 Delivery O2 Flow Rate FiO2 08/12/16 07:00 59 08/12/16 06:00 68 08/12/16 05:00 58 08/12/16 04:00 58 08/12/16 04:00 97.8 61 107/55 98 08/12/16 03:00 61 08/12/16 02:00 60 08/12/16 01:00 58 08/12/16 00:00 97.9 64 136/67 96 08/12/16 00:00 60 08/11/16 23:00 60 08/11/16 22:00 66 08/11/16 21:00 66 08/11/16 20:00 97.9 71 20 122/55 100 08/11/16 20:00 70 08/11/16 19:00 67 08/11/16 18:00 66 08/11/16 17:00 68 08/11/16 16:00 70 08/11/16 16:00 98.2 71 16 127/47 100 08/11/16 15:00 74 08/11/16 14:00 64 08/11/16 14:00 98.1 70 20 109/55 100 08/11/16 14:00 72 08/11/16 13:02 115 08/11/16 13:00 62 08/11/16 12:51 100 17 113/55 97 Room Air 08/11/16 11:51 99 18 120/88 97 Room Air 08/11/16 10:49 97 16 108/55 98 Room Air 08/11/16 10:41 18 08/11/16 09:57 94 17 134/76 97 Room Air 08/11/16 09:40 91 I/O 08/11/16 08/11/16 08/11/16 08/12/16 08/12/16 08/12/16 07:00 15:00 23:00 07:00 15:00 23:00 Intake Total 480 ml Output Total 550 ml Balance -70 ml Intake Oral 480 ml Output Urine Total 550 ml (Lori Unger MD) Result Diagram: 08/12/1661508/12/16615 Objective Remarks GENERAL: WN, WD male laying comfortably in bed in NAD. SKIN: Warm and dry. HEENT: AT/NC. Pupils equal and round. MMM. NECK: Supple, no JVD. HEART: RRR no m/r/g. LUNGS: CTAB without wheezes or crackles. ABDOMEN: Soft, NT, ND. EXTREMITIES: No LE edema. NEURO: Awake and alert. PSYCH: Appropriate mood and affect. (Lori Unger MD) A/P Assessment and Plan 80 year old male with HTN, DM, and seizure disorder admitted for new- onset atrial fibrillation with RVR. Cardiology was consulted and patient now on sotalol and Xarelto as his CHADSVASc score is high. Discharge Planning Anticipate D/C in 1-2 days. (Lori Unger MD) Attending Attestation Patient examined and case discussed with resident physicians I have read the above note and agree with the assessment/plan as discussed with me I was involved in all medical decision making for this patient Srini Felix M.D. (Srini Felix MD) Problem List: (1) Atrial fibrillation with RVR Status: Acute Plan: New onset with CHADSVASc score 4. Rate-controlled today. - Cardiology consulted and patient started on Sotalol and Xarelto - Off diltiazem drip - ACS ruled out - TSH normal - Continue tele (2) Fall Status: Acute Plan: Imaging all negative for acute fracture. - PT consulted (3) Anemia Status: Chronic Plan: Iron studies consistent with iron-deficiency anemia as total iron low and % saturation high. - Hemoglobin 8.8 on admission but down to 7.5 today. Will repeat at 1600. Transfuse 2 units if trending down - Obtain iron studies and reticulocyte count - Check Hemoccult; if positive consult GI - Continue home ferrous sulfate (4) Hypertension Status: Chronic Plan: BP stable. Continue home HCTZ and Lisinopril. (5) Diabetes mellitus Status: Chronic Plan: Holding home anti-hyperglycemics and cover with SSI per protocol. (6) FEN/PPX Status: Acute Plan: - Fluids: Tolerating PO - Electrolytes: Monitor and replete PRN - Nutrition: Heart healthy diet - DVT prophylaxis: On Xarelto Chronic Medical problems: - Depression: Continue home Zoloft - Asthma: Continue home albuterol. 2 puffs every 4 hours when necessary shortness of breath - BPH: Continue home Flomax - GERD: Continue home Protonix - Hyperlipidemia: Continue home Lipitor - Seizure disorder: Continue home Keppra - Asthma: Continue home albuterol PRN dw Dr. Felix (Lori Unger MD) Problem Qualifiers (1) Fall: Qualified Code: W19.XXXA - Fall, initial encounter (2) Anemia: Qualified Code: D64.9 - Anemia, unspecified type Lori Unger MD Aug 12, 2016 08:47 Srini Felix MD Aug 12, 2016 11:08
[2016-08-12] MEDS ORDERED: ASPIRIN 81 MG CHEW TAB CHEW SCH (09:00)
[2016-08-12] MEDS ORDERED: FERROUS SULFATE 325 MG (65 MG ELEMENTAL IRON) TAB PO SCH (09:00)
[2016-08-12] MEDS: SODIUM CHLORIDE 0.9% FLUSH 10 ML FLUSH IV FLUSH SCH ×2 (09:14→21:18)
[2016-08-12] MEDS: levETIRAcetam 500 MG TAB PO SCH ×2 (09:14→21:18)
[2016-08-12] MEDS: HYDROCHLOROTHIAZIDE 25 MG TAB PO SCH (09:15)
[2016-08-12] MEDS: LISINOPRIL 20 MG TAB PO SCH (09:15)
[2016-08-12] MEDS: ATORVASTATIN 20 MG TAB PO SCH (09:16)
[2016-08-12] MEDS: RIVAROXABAN 20 MG TAB PO SCH (09:16)
[2016-08-12] MEDS: SOTALOL HCL 80 MG TAB PO SCH ×2 (09:16→21:18)
[2016-08-12] MEDS: OLOPATADINE HCL 0.1% OPHT SOLN 5 ML BTL EACH EYE SCH ×2 (09:17→21:18)
[2016-08-12] MEDS: traMADol HCL 50 MG TAB PO SCH ×2 (09:17→21:17)
[2016-08-12] MEDS: PANTOPRAZOLE SOD 40 MG DELAYED RELEASE TAB PO SCH (09:18)
--- NOTE | 2016-08-12 14:02 | PD.CARD.PN ---
Subjective Subjective Remarks No CP, SOB or palpitations, in SR Objective Medications Current Medications Medications (Trade) Dose Ordered Sig/Marci Route Start Time Stop Time Status Last Admin (NS Flush) 2 ml UNSCH PRN IV FLUSH 08/11/16 11:45 (NS Flush) 2 ml BID IV FLUSH 08/11/16 21:00 08/12/16 09:14 (Proair Hfa Inh) 2 puff Q4HR PRN INH 08/11/16 12:15 (Keppra) 500 mg BID PO 08/11/16 21:00 08/12/16 09:14 (Zoloft) 50 mg HS PO 08/11/16 21:00 08/11/16 21:59 (Flomax) 0.4 mg HS PO 08/11/16 21:00 08/11/16 21:59 (Ultram) 50 mg BID PO 08/11/16 21:00 08/12/16 09:17 (Prinivil) 20 mg DAILY PO 08/12/16 09:00 08/12/16 09:15 (Protonix) 40 mg DAILY PO 08/12/16 09:00 08/12/16 09:18 (Patanol 0.1% Opth) 1 drop BID EACH EYE 08/12/16 09:00 08/12/16 09:17 (Lipitor) 20 mg DAILY PO 08/12/16 09:00 08/12/16 09:16 (D50w (Vial) Inj) 25 ml UNSCH PRN IV PUSH 08/11/16 12:15 08/12/16 01:17 (Glucagon Inj) 1 mg UNSCH PRN OTHER 08/11/16 12:15 (Apresoline) 10 mg Q6H PRN PO 08/11/16 13:15 (Fiona-Colace) 1 tab HS PRN PO 08/11/16 13:15 (Tylenol) 650 mg Q4H PRN PO 08/11/16 13:15 (Hydrodiuril) 25 mg DAILY PO 08/12/16 09:00 08/12/16 09:15 (Betapace) 80 mg Q12HR PO 08/11/16 21:00 08/12/16 09:16 (Xarelto) 20 mg DAILY PO 08/12/16 09:00 08/12/16 09:16 (Ferrous Sulfate) 325 mg BID PO 08/12/16 21:00 Vital Signs / I&O Vital Signs Date Time Temp Pulse Resp B/P Pulse Ox O2 Delivery O2 Flow Rate FiO2 08/12/16 13:00 64 08/12/16 12:00 54 08/12/16 11:00 98.5 60 16 118/58 97 08/12/16 11:00 60 08/12/16 10:00 60 08/12/16 09:00 64 08/12/16 08:00 98.3 61 17 123/63 100 08/12/16 08:00 62 08/12/16 07:00 59 08/12/16 06:00 68 08/12/16 05:00 58 08/12/16 04:00 58 08/12/16 04:00 97.8 61 107/55 98 08/12/16 03:00 61 08/12/16 02:00 60 08/12/16 01:00 58 08/12/16 00:00 97.9 64 136/67 96 08/12/16 00:00 60 08/11/16 23:00 60 08/11/16 22:00 66 08/11/16 21:00 66 08/11/16 20:00 97.9 71 20 122/55 100 08/11/16 20:00 70 08/11/16 19:00 67 08/11/16 18:00 66 08/11/16 17:00 68 08/11/16 16:00 70 08/11/16 16:00 98.2 71 16 127/47 100 08/11/16 15:00 74 08/11/16 14:00 64 08/11/16 14:00 98.1 70 20 109/55 100 08/11/16 14:00 72 I/O 08/11/16 08/11/16 08/11/16 08/12/16 08/12/16 08/12/16 07:00 15:00 23:00 07:00 15:00 23:00 Intake Total 480 ml Output Total 550 ml Balance -70 ml Intake Oral 480 ml Output Urine Total 550 ml Physical Exam GENERAL: In NAD SKIN: Warm and dry. HEAD: Normocephalic. EYES: No scleral icterus. No injection or drainage. NECK: Supple, trachea midline. No JVD or lymphadenopathy. CARDIOVASCULAR: Regular rate and rhythm without murmurs, gallops, or rubs. RESPIRATORY: Breath sounds equal bilaterally. No accessory muscle use. GASTROINTESTINAL: Abdomen soft, non-tender, nondistended. MUSCULOSKELETAL: No cyanosis, or edema. Laboratory Laboratory Tests Test 08/11/16 08/11/16 08/12/16 08/12/16 15:27 20:10 06:16 12:20 Troponin I 0.02 NG/ML 0.02 NG/ML Magnesium Level 1.7 MG/DL Iron Level 23 MCG/DL Total Iron Binding Capacity 402 MCG/DL Percent Iron Saturation 5.7 % Free Thyroxine 1.13 NG/DL Thyroid Stimulating Hormone 1.530 uIU/ML 3rd Gen White Blood Count 4.0 TH/MM3 Red Blood Count 2.65 MIL/MM3 Hemoglobin 7.5 GM/DL Hematocrit 22.7 % Mean Corpuscular Volume 85.5 FL Mean Corpuscular Hemoglobin 28.2 PG Mean Corpuscular Hemoglobin 33.0 % Concent Red Cell Distribution Width 14.0 % Platelet Count 229 TH/MM3 Mean Platelet Volume 8.5 FL Sodium Level 131 MEQ/L Potassium Level 4.2 MEQ/L Chloride Level 95 MEQ/L Carbon Dioxide Level 25.8 MEQ/L Anion Gap 10 MEQ/L Blood Urea Nitrogen 20 MG/DL Creatinine 0.96 MG/DL Estimat Glomerular Filtration 76 ML/MIN Rate Random Glucose 148 MG/DL Calcium Level 8.6 MG/DL Ferritin 8 NG/ML Imaging Last Impressions Thoracic Spine X-Ray 08/11/16 0000 Signed Impressions: Service Date/Time: Thursday, August 11, 2016 09:27 - CONCLUSION: 1. Mild compression fracture deformity of the T7 vertebral body of indeterminate age. There is no retropulsion. 2. Osteopenia and minimal degenerative change. Mateo Alberts MD Pelvis X-Ray 08/11/16 0000 Signed Impressions: Service Date/Time: Thursday, August 11, 2016 09:23 - CONCLUSION: Negative trauma study. Mateo Alberts MD Head CT 08/11/16 0000 Signed Impressions: Service Date/Time: Thursday, August 11, 2016 09:38 - CONCLUSION: Negative trauma CT. Postsurgical changes are noted. Mateo Alberts MD Chest X-Ray 08/11/16 0000 Signed Impressions: Service Date/Time: Thursday, August 11, 2016 09:24 - CONCLUSION: No acute disease. Mateo Alberts MD Cervical Spine CT 08/11/16 0000 Signed Impressions: Service Date/Time: Thursday, August 11, 2016 09:38 - CONCLUSION: Negative trauma CT. Mateo Alberts MD Assessment and Plan Problem List: (1) Atrial fibrillation with RVR (2) Fall (3) Anemia (4) Diabetes mellitus (5) Hypertension (6) Seizure disorder Assessment and Plan Stays in SR on sotalol. EKG w nl QTc. Continue anticoagulation. Increase activity. D/w pt's son in [place]. Problem Qualifiers (1) Fall: Qualified Code: W19.XXXA - Fall, initial encounter (2) Anemia: Qualified Code: D64.9 - Anemia, unspecified type Yola Brooke MD Aug 12, 2016 14:02
[2016-08-12 17:19] LABS: HEMATOCRIT 23.7 % (39.0-51.0); REVIEW FLAG FINAL
--- NOTE | 2016-08-12 19:01 | EKG ---
Date Performed: 08/12/2016 Time Performed: 07:55:08 PTAGE: 80 years EKG: Sinus rhythm with PAC(s) Right bundle branch block Abnormal ECG PREVIOUS TRACING : 08/11/2016 08.52 Compared to the previous tracing atrial flutter no longer p resent DOCTOR: Yola Brooke Interpretating Date/Time 08/12/2016 19:00:44
[2016-08-12] MEDS: SERTRALINE HCL 50 MG TAB PO SCH (21:17)
[2016-08-12] MEDS: TAMSULOSIN HCL 0.4 MG CAP PO SCH (21:18)
[2016-08-12] MEDS: FERROUS SULFATE 325 MG (65 MG ELEMENTAL IRON) TAB PO SCH (21:18)
[2016-08-13] VITALS (25 sets, daily range): BP systolic 96–131; BP diastolic 48–65; PULSE 48–57; RESP 14–18; TEMP 98–98.9; O2SAT 95–97
[2016-08-13] MEDS: ONDANSETRON HCL 4 MG/2 ML VIAL IV PUSH PRN ×2 (03:34→22:18)
[2016-08-13] MEDS: INSULIN ASPART SUPPLEMENTAL SCALE SQ SCH ×4 (07:00→21:00)
[2016-08-13 07:23] LABS: AUTOMATED NEUTROPHIL # 3.3 TH/MM3 (1.8-7.7); BASOPHIL % 0.4 % (0.0-2.0); EOSINOPHIL # 0.1 TH/MM3 (0-0.4); HEMATOCRIT 23.5 % (39.0-51.0); HEMO FLAGS DIFF FINAL; LYMPH % 19.1 % (9.0-44.0); LYMPHOCYTE # 0.9 TH/MM3 (1.0-4.8); MEAN CELL VOLUME 85.5 FL (80.0-100.0); MEAN CORPUSCULAR HEMOGLOBIN 28.2 PG (27.0-34.0); NEUT % 69.5 % (16.0-70.0); PLATELET COUNT 252 TH/MM3 (150-450); RED BLOOD COUNT 2.75 MIL/MM3 (4.50-5.90); RED CELL DISTRIBUTION WIDTH 14.1 % (11.6-17.2); WHITE BLOOD COUNT 4.7 TH/MM3 (4.0-11.0)
[2016-08-13 07:28] LABS: BICARBONATE 27.2 MEQ/L (21.0-32.0); POTASSIUM 4.1 MEQ/L (3.5-5.1)
--- NOTE | 2016-08-13 07:37 | HHI.FF ---
Face to Face Verification Diagnosis: (1) Atrial fibrillation with RVR Physical Therapy Order: Evaluate and Treat, Improve ambulation, Strength and gait training Home Health Nursing Order: Medical education Signs/symptoms of disease process Medication education-adverse effect Nursing assessment with vital signs I have seen patient Alfonso Diaz on 08/13/16. My clinical findings support the need for the requested home health care services because: Ltd mobility - disease progression Deconditioned w/ increased weakness Med compliance is questionable Limited ability to care for self High risk of falls I certify that my clinical findings support that this patient is homebound because: Impaired cognitive ability/safety Unsteady gait/balance Unsafe to leave home unassisted Montrell Arguello MD R2 Aug 13, 2016 07:37
[2016-08-13] MEDS: OLOPATADINE HCL 0.1% OPHT SOLN 5 ML BTL EACH EYE SCH (09:14)
[2016-08-13] MEDS: SODIUM CHLORIDE 0.9% FLUSH 10 ML FLUSH IV FLUSH SCH ×2 (09:14→22:19)
[2016-08-13] MEDS: FERROUS SULFATE 325 MG (65 MG ELEMENTAL IRON) TAB PO SCH ×2 (09:15→22:18)
[2016-08-13] MEDS: levETIRAcetam 500 MG TAB PO SCH ×2 (09:15→22:15)
[2016-08-13] MEDS: LISINOPRIL 20 MG TAB PO SCH (09:15)
[2016-08-13] MEDS: RIVAROXABAN 20 MG TAB PO SCH (09:15)
[2016-08-13] MEDS: HYDROCHLOROTHIAZIDE 25 MG TAB PO SCH (09:15)
[2016-08-13] MEDS: PANTOPRAZOLE SOD 40 MG DELAYED RELEASE TAB PO SCH (09:15)
[2016-08-13] MEDS: ATORVASTATIN 20 MG TAB PO SCH (09:15)
[2016-08-13] MEDS: traMADol HCL 50 MG TAB PO SCH ×2 (09:16→22:19)
[2016-08-13] MEDS: SOTALOL HCL 80 MG TAB PO SCH ×2 (09:16→22:15)
[2016-08-13 10:52] LABS: HEMOGLOBIN A1a 1.3 %; HEMOGLOBIN A1b 2.2 %; HEMOGLOBIN Ao 83.7 %; HEMOGLOBIN LA1C 1.6 %; HEMOGLOBIN P3 3.7 %
--- NOTE | 2016-08-13 11:44 | HHI.FPPN ---
Subjective Remarks Patient is doing better this morning. Denies chest pain, nausea, vomiting, diarrhea, fever, chills, shortness of breath. (Montrell Arguello MD R2) Objective Vitals Vital Signs Date Time Temp Pulse Resp B/P Pulse Ox O2 Delivery O2 Flow Rate FiO2 08/13/16 11:07 98.2 53 17 109/57 96 08/13/16 11:04 17 08/13/16 11:00 50 08/13/16 10:00 52 08/13/16 09:00 52 08/13/16 08:00 50 08/13/16 07:00 98.0 57 16 112/59 97 08/13/16 07:00 52 08/13/16 06:00 50 08/13/16 05:00 52 08/13/16 04:00 50 08/13/16 03:00 98.3 52 14 131/65 95 08/13/16 03:00 53 08/13/16 02:00 52 08/13/16 01:00 54 08/13/16 00:00 56 08/12/16 23:00 53 08/12/16 23:00 98.5 54 16 120/64 97 08/12/16 22:00 52 08/12/16 21:00 66 08/12/16 20:00 52 08/12/16 19:00 53 08/12/16 19:00 98.4 54 18 122/63 98 08/12/16 18:00 57 08/12/16 17:10 54 08/12/16 17:00 55 08/12/16 16:00 56 08/12/16 15:00 97.8 56 18 104/53 98 08/12/16 15:00 55 08/12/16 14:00 56 08/12/16 13:00 64 08/12/16 12:00 54 I/O 08/12/16 08/12/16 08/12/16 08/13/16 08/13/16 08/13/16 07:00 15:00 23:00 07:00 15:00 23:00 Intake Total 480 ml 120 ml 240 ml Output Total 550 ml 475 ml Balance -70 ml 120 ml -235 ml Intake Oral 480 ml 120 ml 240 ml Output Urine Total 550 ml 475 ml # Voids 3 (Montrell Arguello MD R2) Result Diagram: 08/13/1653708/13/16537 Objective Remarks GENERAL: WN, WD male laying comfortably in bed in NAD. SKIN: Warm and dry. HEENT: AT/NC. Pupils equal and round. MMM. NECK: Supple, no JVD. HEART: RRR no m/r/g. LUNGS: CTAB without wheezes or crackles. ABDOMEN: Soft, NT, ND. EXTREMITIES: No LE edema. NEURO: Awake and alert. PSYCH: Appropriate mood and affect. (Montrell Arguello MD R2) A/P Assessment and Plan 80 year old male with HTN, DM, and seizure disorder admitted for new- onset atrial fibrillation with RVR. Cardiology was consulted and patient now on sotalol and Xarelto as his CHADSVASc score is high. Discharge Planning Okay for discharge today. Discharge pending case management providing discharge needs, including xarelto, and home with home health PT. (Montrell Arguello MD R2) Attending Attestation Pt. examined and case discussed with resident physician I have read the above note and agree with the assessment/plan as discussed with me I was involved in all medical decision making for this patient Srini Felix MD (Srini Felix MD) Problem List: (1) Atrial fibrillation Status: Acute Plan: New onset with CHADSVASc score 4. Rate-controlled today. - Cardiology consulted and patient started on Sotalol and Xarelto - ACS ruled out - TSH normal - Continue tele (2) Fall Status: Acute Plan: Imaging all negative for acute fracture. - PT consulted - home with home health PT (3) Anemia Status: Chronic Plan: Iron studies consistent with iron-deficiency anemia as total iron low and % saturation high. - Hemoglobin 8.8 on admission but down to 7.8; transfuse as needed to keep hemoglobin greater than 7 - Obtain iron studies and reticulocyte count - Check Hemoccult; if positive consult GI - Continue home ferrous sulfate (4) Hypertension Status: Chronic Plan: BP stable. Continue home HCTZ and Lisinopril. (5) Diabetes mellitus Status: Chronic Plan: Holding home anti-hyperglycemics and cover with SSI per protocol. (6) FEN/PPX Status: Acute Plan: - Fluids: Tolerating PO - Electrolytes: Monitor and replete PRN - Nutrition: Heart healthy diet - DVT prophylaxis: On Xarelto Chronic Medical problems: - Depression: Continue home Zoloft - Asthma: Continue home albuterol. 2 puffs every 4 hours when necessary shortness of breath - BPH: Continue home Flomax - GERD: Continue home Protonix - Hyperlipidemia: Continue home Lipitor - Seizure disorder: Continue home Keppra - Asthma: Continue home albuterol PRN dw Dr. Felix (Montrell Arguello MD R2) Problem Qualifiers (1) Atrial fibrillation: Qualified Code: I48.0 - Paroxysmal atrial fibrillation (2) Fall: Qualified Code: W19.XXXA - Fall, initial encounter (3) Anemia: Qualified Code: D64.9 - Anemia, unspecified type (4) Diabetes mellitus: Qualified Code: E11.8 - Type 2 diabetes mellitus with complication, without long-term current use of insulin Montrell Arguello MD R2 Aug 13, 2016 11:44 Srini Felix MD Aug 13, 2016 21:32
--- NOTE | 2016-08-13 12:19 | HHI.DCPOC ---
Discharge Care Plan Diagnosis: (1) Atrial fibrillation (2) Hypertension (3) Seizure disorder (4) Atrial fibrillation with RVR Goals to Promote Your Health * To prevent worsening of your condition and complications * To maintain your health at the optimal level Directions to Meet Your Goals Take your medications as prescribed Follow your dietary instruction Follow activity as directed Keep your appointments as scheduled Take your immunizations and boosters as scheduled If your symptoms worsen call your PCP, if no PCP go to Urgent Care Center or Emergency Room Smoking is Dangerous to Your Health. Avoid second hand smoke Call the 24-hour hour crisis hotline for domestic abuse at Montrell Arguello MD R2 Aug 13, 2016 12:19
[2016-08-13] MEDS ORDERED: SOTA80 PO (12:23)
[2016-08-13] MEDS ORDERED: XARE20TA PO (12:23)
--- NOTE | 2016-08-13 15:51 | PD.CARD.PN ---
Subjective Subjective Remarks No CP or SOB, unsteady on his feet Objective Medications Current Medications Medications (Trade) Dose Ordered Sig/Marci Route Start Time Stop Time Status Last Admin (NS Flush) 2 ml UNSCH PRN IV FLUSH 08/11/16 11:45 (NS Flush) 2 ml BID IV FLUSH 08/11/16 21:00 08/13/16 09:14 (Proair Hfa Inh) 2 puff Q4HR PRN INH 08/11/16 12:15 (Keppra) 500 mg BID PO 08/11/16 21:00 08/13/16 09:15 (Zoloft) 50 mg HS PO 08/11/16 21:00 08/12/16 21:17 (Flomax) 0.4 mg HS PO 08/11/16 21:00 08/12/16 21:18 (Ultram) 50 mg BID PO 08/11/16 21:00 08/13/16 09:16 (Prinivil) 20 mg DAILY PO 08/12/16 09:00 08/13/16 09:15 (Protonix) 40 mg DAILY PO 08/12/16 09:00 08/13/16 09:15 (Patanol 0.1% Opth) 1 drop BID EACH EYE 08/12/16 09:00 08/13/16 09:14 (Lipitor) 20 mg DAILY PO 08/12/16 09:00 08/13/16 09:15 (D50w (Vial) Inj) 25 ml UNSCH PRN IV PUSH 08/11/16 12:15 08/12/16 01:17 (Glucagon Inj) 1 mg UNSCH PRN OTHER 08/11/16 12:15 (Apresoline) 10 mg Q6H PRN PO 08/11/16 13:15 (Fiona-Colace) 1 tab HS PRN PO 08/11/16 13:15 (Tylenol) 650 mg Q4H PRN PO 08/11/16 13:15 (Hydrodiuril) 25 mg DAILY PO 08/12/16 09:00 08/13/16 09:15 (Betapace) 80 mg Q12HR PO 08/11/16 21:00 08/13/16 09:16 (Xarelto) 20 mg DAILY PO 08/12/16 09:00 08/13/16 09:15 (Ferrous Sulfate) 325 mg BID PO 08/12/16 21:00 08/13/16 09:15 (Zofran Inj) 4 mg Q6HR PRN IV PUSH 08/13/16 03:30 08/13/16 03:34 Vital Signs / I&O Vital Signs Date Time Temp Pulse Resp B/P Pulse Ox O2 Delivery O2 Flow Rate FiO2 08/13/16 15:00 48 08/13/16 15:00 98.4 51 16 96/48 96 08/13/16 14:03 50 08/13/16 13:02 50 08/13/16 12:00 51 08/13/16 11:07 98.2 53 17 109/57 96 08/13/16 11:04 17 08/13/16 11:00 50 08/13/16 10:00 52 08/13/16 09:00 52 08/13/16 08:00 50 08/13/16 07:00 98.0 57 16 112/59 97 08/13/16 07:00 52 08/13/16 06:00 50 08/13/16 05:00 52 08/13/16 04:00 50 08/13/16 03:00 98.3 52 14 131/65 95 08/13/16 03:00 53 08/13/16 02:00 52 08/13/16 01:00 54 08/13/16 00:00 56 08/12/16 23:00 53 08/12/16 23:00 98.5 54 16 120/64 97 08/12/16 22:00 52 08/12/16 21:00 66 08/12/16 20:00 52 08/12/16 19:00 53 08/12/16 19:00 98.4 54 18 122/63 98 08/12/16 18:00 57 08/12/16 17:10 54 08/12/16 17:00 55 08/12/16 16:00 56 I/O 08/12/16 08/12/16 08/12/16 08/13/16 08/13/16 08/13/16 07:00 15:00 23:00 07:00 15:00 23:00 Intake Total 480 ml 120 ml 240 ml Output Total 550 ml 475 ml Balance -70 ml 120 ml -235 ml Intake Oral 480 ml 120 ml 240 ml Output Urine Total 550 ml 475 ml # Voids 3 Physical Exam GENERAL: In NAD SKIN: Warm and dry. HEAD: Normocephalic. EYES: No scleral icterus. No injection or drainage. NECK: Supple, trachea midline. No JVD or lymphadenopathy. CARDIOVASCULAR: Regular rate and rhythm without murmurs, gallops, or rubs. RESPIRATORY: Breath sounds equal bilaterally. No accessory muscle use. GASTROINTESTINAL: Abdomen soft, non-tender, nondistended. MUSCULOSKELETAL: No cyanosis, or edema. Laboratory Last Impressions Thoracic Spine X-Ray 08/11/16 0000 Signed Impressions: Service Date/Time: Thursday, August 11, 2016 09:27 - CONCLUSION: 1. Mild compression fracture deformity of the T7 vertebral body of indeterminate age. There is no retropulsion. 2. Osteopenia and minimal degenerative change. Mateo Alberts MD Pelvis X-Ray 08/11/16 0000 Signed Impressions: Service Date/Time: Thursday, August 11, 2016 09:23 - CONCLUSION: Negative trauma study. Mateo Alberts MD Head CT 08/11/16 0000 Signed Impressions: Service Date/Time: Thursday, August 11, 2016 09:38 - CONCLUSION: Negative trauma CT. Postsurgical changes are noted. Mateo Alberts MD Chest X-Ray 08/11/16 0000 Signed Impressions: Service Date/Time: Thursday, August 11, 2016 09:24 - CONCLUSION: No acute disease. Mateo Alberts MD Cervical Spine CT 08/11/16 0000 Signed Impressions: Service Date/Time: Thursday, August 11, 2016 09:38 - CONCLUSION: Negative trauma CT. Mateo Alberts MD Laboratory Tests Test 08/12/16 08/13/16 16:59 05:38 Hemoglobin 7.8 GM/DL 7.8 GM/DL Hematocrit 23.7 % 23.5 % White Blood Count 4.7 TH/MM3 Red Blood Count 2.75 MIL/MM3 Mean Corpuscular Volume 85.5 FL Mean Corpuscular Hemoglobin 28.2 PG Mean Corpuscular Hemoglobin 33.0 % Concent Red Cell Distribution Width 14.1 % Platelet Count 252 TH/MM3 Mean Platelet Volume 8.9 FL Neutrophils (%) (Auto) 69.5 % Lymphocytes (%) (Auto) 19.1 % Monocytes (%) (Auto) 9.0 % Eosinophils (%) (Auto) 2.0 % Basophils (%) (Auto) 0.4 % Neutrophils # (Auto) 3.3 TH/MM3 Lymphocytes # (Auto) 0.9 TH/MM3 Monocytes # (Auto) 0.4 TH/MM3 Eosinophils # (Auto) 0.1 TH/MM3 Basophils # (Auto) 0.0 TH/MM3 CBC Comment DIFF FINAL Differential Comment Sodium Level 125 MEQ/L Potassium Level 4.1 MEQ/L Chloride Level 89 MEQ/L Carbon Dioxide Level 27.2 MEQ/L Anion Gap 9 MEQ/L Blood Urea Nitrogen 21 MG/DL Creatinine 0.83 MG/DL Estimat Glomerular Filtration 90 ML/MIN Rate Random Glucose 135 MG/DL Calcium Level 8.4 MG/DL Imaging Last Impressions Thoracic Spine X-Ray 08/11/16 0000 Signed Impressions: Service Date/Time: Thursday, August 11, 2016 09:27 - CONCLUSION: 1. Mild compression fracture deformity of the T7 vertebral body of indeterminate age. There is no retropulsion. 2. Osteopenia and minimal degenerative change. Mateo Alberts MD Pelvis X-Ray 08/11/16 0000 Signed Impressions: Service Date/Time: Thursday, August 11, 2016 09:23 - CONCLUSION: Negative trauma study. Mateo Alberts MD Head CT 08/11/16 0000 Signed Impressions: Service Date/Time: Thursday, August 11, 2016 09:38 - CONCLUSION: Negative trauma CT. Postsurgical changes are noted. Mateo Alberts MD Chest X-Ray 08/11/16 0000 Signed Impressions: Service Date/Time: Thursday, August 11, 2016 09:24 - CONCLUSION: No acute disease. Mateo Alberts MD Cervical Spine CT 08/11/16 0000 Signed Impressions: Service Date/Time: Thursday, August 11, 2016 09:38 - CONCLUSION: Negative trauma CT. Mateo Alberts MD Assessment and Plan Problem List: (1) Atrial fibrillation with RVR (2) Fall (3) Anemia (4) Diabetes mellitus (5) Hypertension (6) Seizure disorder Assessment and Plan Stays in SR, mildly bradycardic on sotalol, will decrease dose. EKG w nl QTc. Continue anticoagulation. Increase activity. Living alone, has difficulty ambulating. Recommend to transfer to rehab rather than discharge home. Problem Qualifiers (1) Fall: Qualified Code: W19.XXXA - Fall, initial encounter (2) Anemia: Qualified Code: D64.9 - Anemia, unspecified type (3) Diabetes mellitus: Qualified Code: E11.8 - Type 2 diabetes mellitus with complication, without long-term current use of insulin Yola Brooke MD Aug 13, 2016 15:51
--- NOTE | 2016-08-13 18:35 | EKG ---
Date Performed: 08/13/2016 Time Performed: 08:54:52 PTAGE: 80 years EKG: Sinus bradycardia Right bundle branch block Abnormal ECG PREVIOUS TRACING : 08/12/2016 07.55 Compared to prior tracing no significant change DOCTOR: Yola Brooke Interpretating Date/Time 08/13/2016 18:34:16
[2016-08-13] MEDS: SERTRALINE HCL 50 MG TAB PO SCH (22:18)
[2016-08-13] MEDS: TAMSULOSIN HCL 0.4 MG CAP PO SCH (22:19)
[2016-08-14] VITALS (24 sets, daily range): BP systolic 94–123; BP diastolic 53–64; PULSE 48–59; RESP 12–18; TEMP 97.8–98.7; O2SAT 96–98
[2016-08-14] MEDS: INSULIN ASPART SUPPLEMENTAL SCALE SQ SCH ×4 (07:00→21:00)
[2016-08-14 07:01] LABS: BICARBONATE 28.8 MEQ/L (21.0-32.0)
[2016-08-14 07:06] LABS: AUTOMATED NEUTROPHIL # 2.7 TH/MM3 (1.8-7.7); BASOPHIL % 0.4 % (0.0-2.0); EOSINOPHIL # 0.1 TH/MM3 (0-0.4); EOSINOPHIL % 2.5 % (0.0-4.0); HEMATOCRIT 21.7 % (39.0-51.0); HEMO FLAGS DIFF FINAL; MEAN CELL VOLUME 83.7 FL (80.0-100.0); MEAN CORPUSCULAR HGB CONC 33.5 % (32.0-36.0); MONO % 11.2 % (0.0-8.0); NEUT % 61.9 % (16.0-70.0); PLATELET COUNT 251 TH/MM3 (150-450); RED BLOOD COUNT 2.59 MIL/MM3 (4.50-5.90); RED CELL DISTRIBUTION WIDTH 13.7 % (11.6-17.2); WHITE BLOOD COUNT 4.3 TH/MM3 (4.0-11.0)
--- NOTE | 2016-08-14 07:27 | HHI.FPPN ---
Subjective Remarks Patient seen and examined this morning. Overnight events. Vitals are stable he 's afebrile. Cardiology recommends rehabilitation. Patient feels well, states he has not had a BM in 4 days. Currently drinking prune juice. He states he is able to walk to the bathroom on his own. 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 (Lori Sinha MD R3) Objective Vitals Vital Signs Date Time Temp Pulse Resp B/P Pulse Ox O2 Delivery O2 Flow Rate FiO2 08/14/16 03:00 98.5 51 18 120/64 97 08/14/16 01:00 48 08/14/16 00:00 52 08/13/16 23:00 49 08/13/16 23:00 98.2 52 18 116/54 97 08/13/16 22:00 54 08/13/16 21:00 50 08/13/16 20:00 48 08/13/16 19:00 54 08/13/16 19:00 98.9 50 18 107/56 97 08/13/16 18:06 54 08/13/16 17:00 50 08/13/16 16:00 50 08/13/16 15:00 48 08/13/16 15:00 98.4 51 16 96/48 96 08/13/16 14:03 50 08/13/16 13:02 50 08/13/16 12:00 51 08/13/16 11:07 98.2 53 17 109/57 96 08/13/16 11:04 17 08/13/16 11:00 50 08/13/16 10:00 52 08/13/16 09:00 52 08/13/16 08:00 50 I/O 08/13/16 08/13/16 08/13/16 08/14/16 08/14/16 08/14/16 07:00 15:00 23:00 07:00 15:00 23:00 Intake Total 240 ml 360 ml Output Total 475 ml 500 ml Balance -235 ml -140 ml Intake Oral 240 ml 360 ml Output Urine Total 475 ml 500 ml (Lori Sinha MD R3) Result Diagram: 08/14/16 0525 08/14/1625 Imaging Last Impressions Thoracic Spine X-Ray 08/11/16 0000 Signed Impressions: Service Date/Time: Thursday, August 11, 2016 09:27 - CONCLUSION: 1. Mild compression fracture deformity of the T7 vertebral body of indeterminate age. There is no retropulsion. 2. Osteopenia and minimal degenerative change. Mateo Alberts MD Pelvis X-Ray 08/11/16 0000 Signed Impressions: Service Date/Time: Thursday, August 11, 2016 09:23 - CONCLUSION: Negative trauma study. Mateo Alberts MD Head CT 08/11/16 0000 Signed Impressions: Service Date/Time: Thursday, August 11, 2016 09:38 - CONCLUSION: Negative trauma CT. Postsurgical changes are noted. Mateo Alberts MD Chest X-Ray 08/11/16 0000 Signed Impressions: Service Date/Time: Thursday, August 11, 2016 09:24 - CONCLUSION: No acute disease. Mateo Alberts MD Cervical Spine CT 08/11/16 0000 Signed Impressions: Service Date/Time: Thursday, August 11, 2016 09:38 - CONCLUSION: Negative trauma CT. Mateo Alberts MD Objective Remarks GENERAL: WN, WD male laying comfortably in bed in NAD. SKIN: Warm and dry. HEENT: AT/NC. Pupils equal and round. MMM. NECK: Supple, no JVD. HEART: RRR no m/r/g. LUNGS: CTAB without wheezes or crackles. ABDOMEN: Soft, NT, ND. EXTREMITIES: No LE edema. NEURO: Awake and alert. PSYCH: Appropriate mood and affect. (Lori Sinha MD R3) A/P Assessment and Plan 80 year old male with HTN, DM, and seizure disorder admitted for new- onset atrial fibrillation with RVR. Cardiology was consulted and patient now on sotalol and Xarelto as his CHADSVASc score is high. Discharge Planning Discharge to rehabilitation after BM. Discussed with Dr. Felix (Lori Sinha MD R3) Attending Attestation Pt. examined and case discussed with resident physicians I have read the above note and agree with the assessment/plan as discussed with me I was involved in all medical decision making for this patient Srini Felix MD (Srini Felix MD) Problem List: (1) Atrial fibrillation Status: Acute Plan: New onset with CHADSVASc score 4. Rate-controlled today. - Cardiology consulted and patient started on Sotalol and Xarelto - ACS ruled out - TSH normal - Continue tele (2) Fall Status: Resolved Plan: Imaging all negative for acute fracture. - PT consulted - Unsteady on feet (3) Anemia Status: Acute Plan: Iron studies consistent with iron-deficiency anemia as total iron low and % saturation high. - Hemoglobin 8.8 on admission, continues to downtrend, patient also feels unsteady on feet, anemia could be contributing. Will transfuse one unit.--> patient refused - Continue home ferrous sulfate - Hemoccult not obtained, patient has not had BM (4) Hypertension Status: Chronic Plan: BP stable. Continue home HCTZ and Lisinopril. (5) Diabetes mellitus Status: Chronic Plan: Holding home anti-hyperglycemics and cover with SSI per protocol. (6) FEN/PPX Status: Acute Plan: - Fluids: Tolerating PO - Electrolytes: Monitor and replete PRN - Nutrition: Heart healthy diet - DVT prophylaxis: On Xarelto Chronic Medical problems: - Depression: Continue home Zoloft - Asthma: Continue home albuterol. 2 puffs every 4 hours when necessary shortness of breath - BPH: Continue home Flomax - GERD: Continue home Protonix - Hyperlipidemia: Continue home Lipitor - Seizure disorder: Continue home Keppra - Asthma: Continue home albuterol PRN dw Dr. Felix (Lori Sinha MD R3) Problem Qualifiers (1) Atrial fibrillation: Qualified Code: I48.0 - Paroxysmal atrial fibrillation (2) Fall: Qualified Code: W19.XXXA - Fall, initial encounter (3) Anemia: Qualified Code: D64.9 - Anemia, unspecified type (4) Diabetes mellitus: Qualified Code: E11.8 - Type 2 diabetes mellitus with complication, without long-term current use of insulin Lori Sinha MD R3 August 14, 2016 07:27 Srini Felix MD August 14, 2016 16:01
[2016-08-14] MEDS ORDERED: SODIUM CHLOR 0.9% 250 ML INJ 250 ML IV ONE (07:30)
[2016-08-14] MEDS: FERROUS SULFATE 325 MG (65 MG ELEMENTAL IRON) TAB PO SCH ×2 (08:28→21:10)
[2016-08-14] MEDS: ATORVASTATIN 20 MG TAB PO SCH (08:28)
[2016-08-14] MEDS: levETIRAcetam 500 MG TAB PO SCH ×2 (08:28→21:09)
[2016-08-14] MEDS: RIVAROXABAN 20 MG TAB PO SCH (08:28)
[2016-08-14] MEDS: traMADol HCL 50 MG TAB PO SCH ×2 (08:28→21:10)
[2016-08-14] MEDS: HYDROCHLOROTHIAZIDE 25 MG TAB PO SCH ×2 (08:28→08:31)
[2016-08-14] MEDS: SOTALOL HCL 80 MG TAB PO SCH ×2 (08:28→21:09)
[2016-08-14] MEDS: OLOPATADINE HCL 0.1% OPHT SOLN 5 ML BTL EACH EYE SCH ×2 (08:29→21:00)
[2016-08-14] MEDS: PANTOPRAZOLE SOD 40 MG DELAYED RELEASE TAB PO SCH (08:29)
[2016-08-14] MEDS: SODIUM CHLORIDE 0.9% FLUSH 10 ML FLUSH IV FLUSH SCH ×2 (08:29→21:10)
[2016-08-14] MEDS: LISINOPRIL 20 MG TAB PO SCH (08:30)
[2016-08-14] MEDS ORDERED: MAGNESIUM HYDROXIDE SUSP 30 ML CUP PO ONE (09:15)
--- NOTE | 2016-08-14 16:17 | PD.CARD.PN ---
Subjective Subjective Remarks No CP or SOB, feels fine Objective Medications Current Medications Medications (Trade) Dose Ordered Sig/Marci Route Start Time Stop Time Status Last Admin (NS Flush) 2 ml UNSCH PRN IV FLUSH 08/11/16 11:45 (NS Flush) 2 ml BID IV FLUSH 08/11/16 21:00 08/14/16 08:29 (Proair Hfa Inh) 2 puff Q4HR PRN INH 08/11/16 12:15 (Keppra) 500 mg BID PO 08/11/16 21:00 08/14/16 08:28 (Zoloft) 50 mg HS PO 08/11/16 21:00 08/13/16 22:18 (Flomax) 0.4 mg HS PO 08/11/16 21:00 08/13/16 22:19 (Ultram) 50 mg BID PO 08/11/16 21:00 08/14/16 08:28 (Protonix) 40 mg DAILY PO 08/12/16 09:00 08/14/16 08:29 (Patanol 0.1% Opth) 1 drop BID EACH EYE 08/12/16 09:00 08/14/16 08:29 (Lipitor) 20 mg DAILY PO 08/12/16 09:00 08/14/16 08:28 (D50w (Vial) Inj) 25 ml UNSCH PRN IV PUSH 08/11/16 12:15 08/12/16 01:17 (Glucagon Inj) 1 mg UNSCH PRN OTHER 08/11/16 12:15 (Apresoline) 10 mg Q6H PRN PO 08/11/16 13:15 (Fiona-Colace) 1 tab HS PRN PO 08/11/16 13:15 08/13/16 16:24 (Tylenol) 650 mg Q4H PRN PO 08/11/16 13:15 (Hydrodiuril) 25 mg DAILY PO 08/12/16 09:00 08/13/16 09:15 (Xarelto) 20 mg DAILY PO 08/12/16 09:00 08/14/16 08:28 (Ferrous Sulfate) 325 mg BID PO 08/12/16 21:00 08/14/16 08:28 (Zofran Inj) 4 mg Q6HR PRN IV PUSH 08/13/16 03:30 08/13/16 22:18 (Prinivil) 10 mg DAILY PO 08/14/16 09:00 Sotalol HCl 40 mg 40 mg Q12HR PO 08/13/16 21:00 08/14/16 08:28 (NS 250 ml Inj) 250 ml @ 15 mls/hr ONCE ONCE IV 08/14/16 07:30 08/15/16 00:09 08/14/16 07:30 Vital Signs / I&O Vital Signs Date Time Temp Pulse Resp B/P Pulse Ox O2 Delivery O2 Flow Rate FiO2 08/14/16 15:00 50 08/14/16 14:00 52 08/14/16 14:00 98.3 52 16 94/55 96 08/14/16 13:45 98.6 54 16 98/53 96 08/14/16 13:00 54 08/14/16 12:00 98.6 52 18 123/62 96 08/14/16 12:00 53 08/14/16 11:00 52 08/14/16 10:00 52 08/14/16 09:30 16 08/14/16 09:00 54 08/14/16 08:00 98.7 54 16 104/55 97 08/14/16 08:00 58 08/14/16 07:00 54 08/14/16 06:00 50 08/14/16 05:00 48 08/14/16 04:00 50 08/14/16 03:00 58 08/14/16 03:00 98.5 51 18 120/64 97 08/14/16 02:00 48 08/14/16 01:00 48 08/14/16 00:00 52 08/13/16 23:00 49 08/13/16 23:00 98.2 52 18 116/54 97 08/13/16 22:00 54 08/13/16 21:00 50 08/13/16 20:00 48 08/13/16 19:00 54 08/13/16 19:00 98.9 50 18 107/56 97 08/13/16 18:06 54 08/13/16 17:00 50 I/O 08/13/16 08/13/16 08/13/16 08/14/16 08/14/16 08/14/16 07:00 15:00 23:00 07:00 15:00 23:00 Intake Total 240 ml 360 ml 240 ml Output Total 475 ml 500 ml 340 ml Balance -235 ml -140 ml -100 ml Intake Oral 240 ml 360 ml 240 ml Output Urine Total 475 ml 500 ml Stool Total 340 ml Physical Exam GENERAL: In NAD SKIN: Warm and dry. HEAD: Normocephalic. EYES: No scleral icterus. No injection or drainage. NECK: Supple, trachea midline. No JVD or lymphadenopathy. CARDIOVASCULAR: Regular rate and rhythm without murmurs, gallops, or rubs. RESPIRATORY: Breath sounds equal bilaterally. No accessory muscle use. GASTROINTESTINAL: Abdomen soft, non-tender, nondistended. MUSCULOSKELETAL: No cyanosis, or edema. Laboratory Laboratory Tests Test 08/14/16 08/14/16 08/14/16 05:25 09:42 11:45 White Blood Count 4.3 TH/MM3 Red Blood Count 2.59 MIL/MM3 Hemoglobin 7.3 GM/DL Hematocrit 21.7 % Mean Corpuscular Volume 83.7 FL Mean Corpuscular Hemoglobin 28.0 PG Mean Corpuscular Hemoglobin 33.5 % Concent Red Cell Distribution Width 13.7 % Platelet Count 251 TH/MM3 Mean Platelet Volume 9.0 FL Neutrophils (%) (Auto) 61.9 % Lymphocytes (%) (Auto) 24.0 % Monocytes (%) (Auto) 11.2 % Eosinophils (%) (Auto) 2.5 % Basophils (%) (Auto) 0.4 % Neutrophils # (Auto) 2.7 TH/MM3 Lymphocytes # (Auto) 1.0 TH/MM3 Monocytes # (Auto) 0.5 TH/MM3 Eosinophils # (Auto) 0.1 TH/MM3 Basophils # (Auto) 0.0 TH/MM3 CBC Comment DIFF FINAL Differential Comment Sodium Level 127 MEQ/L Potassium Level 4.0 MEQ/L Chloride Level 88 MEQ/L Carbon Dioxide Level 28.8 MEQ/L Anion Gap 10 MEQ/L Blood Urea Nitrogen 25 MG/DL Creatinine 0.98 MG/DL Estimat Glomerular Filtration 74 ML/MIN Rate Random Glucose 149 MG/DL Calcium Level 8.6 MG/DL Blood Type O POSITIVE O POSITIVE Antibody Screen NEGATIVE Crossmatch Leukocyte-Reduced Red Blood Cells Blood Bank Comment Imaging Last Impressions Thoracic Spine X-Ray 08/11/16 0000 Signed Impressions: Service Date/Time: Thursday, August 11, 2016 09:27 - CONCLUSION: 1. Mild compression fracture deformity of the T7 vertebral body of indeterminate age. There is no retropulsion. 2. Osteopenia and minimal degenerative change. Mateo Alberts MD Pelvis X-Ray 08/11/16 Signed Impressions: Service Date/Time: Thursday, August 11, 2016 09:23 - CONCLUSION: Negative trauma study. Mateo Alberts MD Head CT 08/11/16 Signed Impressions: Service Date/Time: Thursday, August 11, 2016 09:38 - CONCLUSION: Negative trauma CT. Postsurgical changes are noted. Mateo Alberts MD Chest X-Ray 08/11/16 Signed Impressions: Service Date/Time: Thursday, August 11, 2016 09:24 - CONCLUSION: No acute disease. Mateo Alberts MD Cervical Spine CT 08/11/16 Signed Impressions: Service Date/Time: Thursday, August 11, 2016 09:38 - CONCLUSION: Negative trauma CT. Mateo Alberts MD Assessment and Plan Problem List: (1) Atrial fibrillation with RVR (2) Fall (3) Anemia (4) Diabetes mellitus (5) Hypertension (6) Seizure disorder Assessment and Plan Stays in SR, mild bradycardia on low dose sotalol. EKG w nl QTc. Continue anticoagulation. Increase activity. Living alone, has difficulty ambulating. Recommend to transfer to rehab rather than discharge home. OK to discharge from cardiac standpoint. Problem Qualifiers (1) Fall: Qualified Code: W19.XXXA - Fall, initial encounter (2) Anemia: Qualified Code: D64.9 - Anemia, unspecified type (3) Diabetes mellitus: Qualified Code: E11.8 - Type 2 diabetes mellitus with complication, without long-term current use of insulin Yola Brooke MD August 14, 2016 16:17
--- NOTE | 2016-08-14 16:40 | EKG ---
Date Performed: 08/14/2016 Time Performed: 08:31:08 PTAGE: 80 years EKG: Sinus bradycardia Right bundle branch block Abnormal ECG PREVIOUS TRACING : 08/13/2016 08.54 No significant change from previous tracing noted. DOCTOR: Reynaldo English Interpretating Date/Time 08/14/2016 16:39:13
[2016-08-14 18:43] LABS: HEMATOCRIT 23.9 % (39.0-51.0); REVIEW FLAG FINAL
[2016-08-14] MEDS: TAMSULOSIN HCL 0.4 MG CAP PO SCH (21:09)
[2016-08-14] MEDS: SERTRALINE HCL 50 MG TAB PO SCH (21:09)
[2016-08-15] VITALS (18 sets, daily range): BP systolic 104–116; BP diastolic 50–66; PULSE 48–61; RESP 14–16; TEMP 98.4–98.6; O2SAT 96–97
[2016-08-15 06:52] LABS: AUTOMATED NEUTROPHIL # 4.1 TH/MM3 (1.8-7.7); BASOPHIL % 0.3 % (0.0-2.0); EOSINOPHIL # 0.1 TH/MM3 (0-0.4); EOSINOPHIL % 1.9 % (0.0-4.0); HEMATOCRIT 24.6 % (39.0-51.0); HEMO FLAGS DIFF FINAL; LYMPHOCYTE # 1.1 TH/MM3 (1.0-4.8); MEAN CELL VOLUME 84.5 FL (80.0-100.0); MEAN CORPUSCULAR HEMOGLOBIN 28.8 PG (27.0-34.0); MEAN CORPUSCULAR HGB CONC 34.1 % (32.0-36.0); MONO % 10.4 % (0.0-8.0); NEUT % 68.4 % (16.0-70.0); PLATELET COUNT 252 TH/MM3 (150-450); RED BLOOD COUNT 2.91 MIL/MM3 (4.50-5.90); RED CELL DISTRIBUTION WIDTH 13.8 % (11.6-17.2); WHITE BLOOD COUNT 5.9 TH/MM3 (4.0-11.0)
[2016-08-15] MEDS: INSULIN ASPART SUPPLEMENTAL SCALE SQ SCH ×3 (07:00→15:54)
--- NOTE | 2016-08-15 07:04 | HHI.FPPN ---
Subjective Remarks Patient seen and examined this morning. He later decided to receive the 1 unit blood transfusion and hemoglobin is now stable. Patient has still not had a bowel movement for 5 days. Objective Vitals Vital Signs Date Time Temp Pulse Resp B/P Pulse Ox O2 Delivery O2 Flow Rate FiO2 08/15/16 04:00 98.4 50 14 116/53 97 08/15/16 00:00 98.5 61 14 104/50 96 08/14/16 23:49 14 08/14/16 20:00 98.7 59 12 107/57 96 08/14/16 18:00 54 08/14/16 17:00 54 08/14/16 16:00 52 08/14/16 16:00 97.8 50 16 108/62 98 08/14/16 15:00 50 08/14/16 14:00 52 08/14/16 14:00 98.3 52 16 94/55 96 08/14/16 13:45 98.6 54 16 98/53 96 08/14/16 13:00 54 08/14/16 12:00 98.6 52 18 123/62 96 08/14/16 12:00 53 08/14/16 11:00 52 08/14/16 10:00 52 08/14/16 09:00 54 08/14/16 08:00 98.7 54 16 104/55 97 08/14/16 08:00 58 I/O 08/14/16 08/14/16 08/14/16 08/15/16 08/15/16 08/15/16 07:00 15:00 23:00 07:00 15:00 23:00 Intake Total 240 ml 1095 ml Output Total 340 ml 525 ml Balance -100 ml 570 ml Intake Oral 240 ml 720 ml Packed Cells 375 ml Output Urine Total 525 ml Stool Total 340 ml # Bowel Movements 0 Result Diagram: 08/15/16 0545 08/14/16 0525 Imaging Last Impressions Thoracic Spine X-Ray 08/11/16 0000 Signed Impressions: Service Date/Time: Thursday, August 11, 2016 09:27 - CONCLUSION: 1. Mild compression fracture deformity of the T7 vertebral body of indeterminate age. There is no retropulsion. 2. Osteopenia and minimal degenerative change. Mateo Alberts MD Pelvis X-Ray 08/11/16 0000 Signed Impressions: Service Date/Time: Thursday, August 11, 2016 09:23 - CONCLUSION: Negative trauma study. Mateo Alberts MD Head CT 08/11/16 0000 Signed Impressions: Service Date/Time: Thursday, August 11, 2016 09:38 - CONCLUSION: Negative trauma CT. Postsurgical changes are noted. Mateo Alberts MD Chest X-Ray 08/11/16 Signed Impressions: Service Date/Time: Thursday, August 11, 2016 09:24 - CONCLUSION: No acute disease. Mateo Alberts MD Cervical Spine CT 08/11/16 Signed Impressions: Service Date/Time: Thursday, August 11, 2016 09:38 - CONCLUSION: Negative trauma CT. Mateo Alberts MD Objective Remarks GENERAL: WN, WD male laying comfortably in bed in NAD. SKIN: Warm and dry. HEENT: AT/NC. Pupils equal and round. MMM. NECK: Supple, no JVD. HEART: RRR no m/r/g. LUNGS: CTAB without wheezes or crackles. ABDOMEN: Soft, NT, ND. EXTREMITIES: No LE edema. NEURO: Awake and alert. PSYCH: Appropriate mood and affect. A/P Assessment and Plan 80 year old male with HTN, DM, and seizure disorder admitted for new- onset atrial fibrillation with RVR. Cardiology was consulted and patient now on sotalol and Xarelto as his CHADSVASc score is high. Discharge Planning Discharge to rehabilitation after BM. Discussed with Dr. Felix Problem List: (1) Atrial fibrillation Status: Acute Plan: New onset with CHADSVASc score 4. Rate-controlled today. - Cardiology consulted and patient started on Sotalol and Xarelto - ACS ruled out - TSH normal - Continue tele (2) Fall Status: Resolved Plan: Imaging all negative for acute fracture. - PT consulted - Unsteady on feet (3) Anemia Status: Acute Plan: Iron studies consistent with iron-deficiency anemia as total iron low and % saturation high. - Hemoglobin 8.8 on admission, continues to downtrend, patient also feels unsteady on feet, anemia could be contributing. Will transfuse one unit.--> patient refused - Continue home ferrous sulfate - Hemoccult not obtained, bc patient has not had BM (4) Hypertension Status: Chronic Plan: BP stable. Continue home HCTZ and Lisinopril. (5) Diabetes mellitus Status: Chronic Plan: Holding home anti-hyperglycemics and cover with SSI per protocol. (6) FEN/PPX Status: Acute Plan: - Fluids: Tolerating PO - Electrolytes: Monitor and replete PRN - Nutrition: Heart healthy diet - DVT prophylaxis: On Xarelto Chronic Medical problems: - Depression: Continue home Zoloft - Asthma: Continue home albuterol. 2 puffs every 4 hours when necessary shortness of breath - BPH: Continue home Flomax - GERD: Continue home Protonix - Hyperlipidemia: Continue home Lipitor - Seizure disorder: Continue home Keppra - Asthma: Continue home albuterol PRN dw Dr. Felix (7) Constipation Status: Acute Plan: Status post prune juice, milk of mag, Fiona-Colace - ducolex suppository 1 - encourage PO hydration - may have additional milk of mag Problem Qualifiers (1) Atrial fibrillation: Qualified Code: I48.0 - Paroxysmal atrial fibrillation (2) Fall: Qualified Code: W19.XXXA - Fall, initial encounter (3) Anemia: Qualified Code: D64.9 - Anemia, unspecified type (4) Diabetes mellitus: Qualified Code: E11.8 - Type 2 diabetes mellitus with complication, without long-term current use of insulin Lori Sinha MD R3 August 15, 2016 07:04
[2016-08-15] MEDS ORDERED: MAGNESIUM HYDROXIDE SUSP 30 ML CUP PO ONE (07:15)
[2016-08-15] MEDS ORDERED: BISACODYL 10 MG SUPP RECTAL ONE (07:15)
[2016-08-15] MEDS ORDERED: SOTA80TA PO (07:35)
[2016-08-15] MEDS: OLOPATADINE HCL 0.1% OPHT SOLN 5 ML BTL EACH EYE SCH (09:00)
[2016-08-15] MEDS: LISINOPRIL 20 MG TAB PO SCH (09:02)
[2016-08-15] MEDS: traMADol HCL 50 MG TAB PO SCH (09:02)
[2016-08-15] MEDS: HYDROCHLOROTHIAZIDE 25 MG TAB PO SCH (09:02)
[2016-08-15] MEDS: levETIRAcetam 500 MG TAB PO SCH (09:03)
[2016-08-15] MEDS: PANTOPRAZOLE SOD 40 MG DELAYED RELEASE TAB PO SCH (09:04)
[2016-08-15] MEDS: SOTALOL HCL 80 MG TAB PO SCH (09:04)
[2016-08-15] MEDS: ATORVASTATIN 20 MG TAB PO SCH (09:04)
[2016-08-15] MEDS: FERROUS SULFATE 325 MG (65 MG ELEMENTAL IRON) TAB PO SCH (09:04)
[2016-08-15] MEDS: RIVAROXABAN 20 MG TAB PO SCH (09:04)
[2016-08-15] MEDS: SODIUM CHLORIDE 0.9% FLUSH 10 ML FLUSH IV FLUSH SCH (09:05)
--- NOTE | 2016-08-15 09:53 | HHI.DS ---
Discharge Summary Admission Date Aug 11, 2016 at 10:35 Discharge Date: August 15, 2016 Admitting Diagnosis A. fib with RVR, neck pain, mechanical fall (1) Atrial fibrillation Plan: New onset with CHADSVASc score 4. Rate-controlled today. - Cardiology consulted and patient started on Sotalol and Xarelto - ACS ruled out - TSH normal - Continue tele (2) Fall Plan: Imaging all negative for acute fracture. - PT consulted - Unsteady on feet (3) Anemia Plan: Iron studies consistent with iron-deficiency anemia as total iron low and % saturation high. - Hemoglobin 8.8 on admission, continues to downtrend, patient also feels unsteady on feet, anemia could be contributing. Will transfuse one unit.--> patient refused - Continue home ferrous sulfate - Hemoccult not obtained, bc patient has not had BM (4) Hypertension Plan: BP stable. Continue home HCTZ and Lisinopril. (5) Diabetes mellitus Plan: Holding home anti-hyperglycemics and cover with SSI per protocol. (6) FEN/PPX Plan: - Fluids: Tolerating PO - Electrolytes: Monitor and replete PRN - Nutrition: Heart healthy diet - DVT prophylaxis: On Xarelto Chronic Medical problems: - Depression: Continue home Zoloft - Asthma: Continue home albuterol. 2 puffs every 4 hours when necessary shortness of breath - BPH: Continue home Flomax - GERD: Continue home Protonix - Hyperlipidemia: Continue home Lipitor - Seizure disorder: Continue home Keppra - Asthma: Continue home albuterol PRN dw Dr. Felix (7) Constipation Plan: Status post prune juice, milk of mag, Fiona-Colace - ducolex suppository 1 - encourage PO hydration - may have additional milk of mag Consultants Cardiology- Quadrat Brief History 80-year-old male presenting to the emergency department after a fall at home. He is [place]er-speaking only and is a relatively poor historian, he is present with his son who provides a lot of the history. Apparently, patient woke up this morning around 7:30 AM and started to walk to the bathroom when he felt dizzy and fell. He does endorse palpitations where he describes it as his "heart racing" prior to the fall. He was able to catch himself from the fall and did not hit his head or lose consciousness. There is no evidence of seizure activity such as bowel or bladder incontinence, tongue biting, or tonic- clonic movement or post ictal state. He was able to call 911 for assistance, and while waiting for EMS he was able to stand up and walk into his kitchen and felt relatively well. He does endorse a similar episode to this approximately 2 weeks ago where he felt dizzy with his heart racing that spontaneously resolved. He is currently chest pain-free and does not feel palpitations. He denies any significant shortness of breath, denies any chest pressure, denies any fevers or chills, denies any nausea/vomiting, denies any abdominal discomfort. Upon arrival to the emergency department he was found to be in atrial fibrillation with RVR CBC/BMP: 08/15/16 0545 08/14/16 0525 Significant Findings Laboratory Tests Test 08/12/16 08/12/16 08/13/16 08/14/16 12:20 16:59 05:38 05:25 Ferritin 8 NG/ML (26-388) Hemoglobin 7.8 GM/DL 7.8 GM/DL 7.3 GM/DL (13.0-17.0) (13.0-17.0) (13.0-17.0) Hematocrit 23.7 % 23.5 % 21.7 % (39.0-51.0) (39.0-51.0) (39.0-51.0) Red Blood Count 2.75 MIL/MM3 2.59 MIL/MM3 (4.50-5.90) (4.50-5.90) Monocytes (%) (Auto) 9.0 % (0.0-8.0) 11.2 % (0.0-8.0) Lymphocytes # (Auto) 0.9 TH/MM3 (1.0-4.8) Sodium Level 125 MEQ/L 127 MEQ/L (136-145) (136-145) Chloride Level 89 MEQ/L 88 MEQ/L (98-107) (98-107) Blood Urea Nitrogen 21 MG/DL (7-18) 25 MG/DL (7-18) Random Glucose 135 MG/DL 149 MG/DL (74-106) (74-106) Calcium Level 8.4 MG/DL (8.5-10.1) Estimat Glomerular Filtration 74 ML/MIN (>89) Rate Test 5/1/17 5/2/17 18:15 05:45 Hemoglobin 8.0 GM/DL 8.4 GM/DL (13.0-17.0) (13.0-17.0) Hematocrit 23.9 % 24.6 % (39.0-51.0) (39.0-51.0) Red Blood Count 2.91 MIL/MM3 (4.50-5.90) Monocytes (%) (Auto) 10.4 % (0.0-8.0) Imaging Last Impressions Thoracic Spine X-Ray 08/11/16 0000 Signed Impressions: Service Date/Time: Thursday, August 11, 2016 09:27 - CONCLUSION: 1. Mild compression fracture deformity of the T7 vertebral body of indeterminate age. There is no retropulsion. 2. Osteopenia and minimal degenerative change. Mateo Alberts MD Pelvis X-Ray 08/11/16 0000 Signed Impressions: Service Date/Time: Thursday, August 11, 2016 09:23 - CONCLUSION: Negative trauma study. Mateo Alberts MD Head CT 08/11/16 0000 Signed Impressions: Service Date/Time: Thursday, August 11, 2016 09:38 - CONCLUSION: Negative trauma CT. Postsurgical changes are noted. Mateo Alberts MD Chest X-Ray 08/11/16 0000 Signed Impressions: Service Date/Time: Thursday, August 11, 2016 09:24 - CONCLUSION: No acute disease. Mateo Alberts MD Cervical Spine CT 08/11/16 0000 Signed Impressions: Service Date/Time: Thursday, August 11, 2016 09:38 - CONCLUSION: Negative trauma CT. Mateo Alberts MD PE at Discharge GENERAL: WN, WD male laying comfortably in bed in NAD. SKIN: Warm and dry. HEENT: AT/NC. Pupils equal and round. MMM. NECK: Supple, no JVD. HEART: RRR no m/r/g. LUNGS: CTAB without wheezes or crackles. ABDOMEN: Soft, NT, ND. EXTREMITIES: No LE edema. NEURO: Awake and alert. PSYCH: Appropriate mood and affect. Hospital Course Patient presented after a fall, new on set A-fib. Was seen by cardiology, started on xarelto and sotalol. Had some hypotension and dose of sotalol was decreased. Hospital stay prolonged due to significant constipation. Patient discharged to SNF. Pt Condition on Discharge: Stable Discharge Disposition: Discharge to SNF Discharge Instructions DIET: Follow Instructions for: Heart Healthy Diet Activities you can perform: See Additionl Instruction Other Activity Instructions: Per physical therapy Lori Sinha MD R3 August 15, 2016 09:52
--- NOTE | 2016-08-15 17:12 | PD.CARD.PN ---
Subjective Subjective Remarks No CP or SOB, feels better, family present Objective Medications Current Medications Medications (Trade) Dose Ordered Sig/Marci Route Start Time Stop Time Status Last Admin (NS Flush) 2 ml UNSCH PRN IV FLUSH 08/11/16 11:45 (NS Flush) 2 ml BID IV FLUSH 08/11/16 21:00 08/15/16 09:05 (Proair Hfa Inh) 2 puff Q4HR PRN INH 08/11/16 12:15 (Keppra) 500 mg BID PO 08/11/16 21:00 08/15/16 09:03 (Zoloft) 50 mg HS PO 08/11/16 21:00 08/14/16 21:09 (Flomax) 0.4 mg HS PO 08/11/16 21:00 08/14/16 21:09 (Ultram) 50 mg BID PO 08/11/16 21:00 08/15/16 09:02 (Protonix) 40 mg DAILY PO 08/12/16 09:00 08/15/16 09:04 (Patanol 0.1% Opth) 1 drop BID EACH EYE 08/12/16 09:00 08/14/16 21:00 (Lipitor) 20 mg DAILY PO 08/12/16 09:00 08/15/16 09:04 (D50w (Vial) Inj) 25 ml UNSCH PRN IV PUSH 08/11/16 12:15 08/12/16 01:17 (Glucagon Inj) 1 mg UNSCH PRN OTHER 08/11/16 12:15 (Apresoline) 10 mg Q6H PRN PO 08/11/16 13:15 (Fiona-Colace) 1 tab HS PRN PO 08/11/16 13:15 08/13/16 16:24 (Tylenol) 650 mg Q4H PRN PO 08/11/16 13:15 (Hydrodiuril) 25 mg DAILY PO 08/12/16 09:00 08/15/16 09:02 (Xarelto) 20 mg DAILY PO 08/12/16 09:00 08/15/16 09:04 (Ferrous Sulfate) 325 mg BID PO 08/12/16 21:00 08/15/16 09:04 (Zofran Inj) 4 mg Q6HR PRN IV PUSH 08/13/16 03:30 08/13/16 22:18 (Prinivil) 10 mg DAILY PO 08/14/16 09:00 08/15/16 09:02 (Betapace) 40 mg Q12HR PO 08/13/16 21:00 08/15/16 09:04 Vital Signs / I&O Vital Signs Date Time Temp Pulse Resp B/P Pulse Ox O2 Delivery O2 Flow Rate FiO2 08/15/16 16:00 56 08/15/16 15:30 98.6 59 16 108/64 96 08/15/16 15:00 56 08/15/16 14:00 54 08/15/16 13:00 52 08/15/16 12:00 56 08/15/16 12:00 98.5 59 16 112/66 96 08/15/16 11:00 57 08/15/16 10:02 20 08/15/16 10:00 53 08/15/16 09:00 56 08/15/16 08:00 98.6 59 16 108/64 96 08/15/16 08:00 54 08/15/16 07:00 49 08/15/16 06:00 50 08/15/16 05:00 50 08/15/16 04:00 98.4 50 14 116/53 97 08/15/16 04:00 48 08/15/16 03:00 50 08/15/16 02:00 50 08/15/16 01:00 50 08/15/16 00:00 98.5 61 14 104/50 96 08/15/16 00:00 58 08/14/16 23:00 59 08/14/16 21:00 54 08/14/16 20:00 98.7 59 12 107/57 96 08/14/16 20:00 56 08/14/16 19:00 56 08/14/16 18:00 54 I/O 08/14/16 08/14/16 08/14/16 08/15/16 08/15/16 08/15/16 07:00 15:00 23:00 07:00 15:00 23:00 Intake Total 240 ml 1095 ml 480 ml 725 ml Output Total 340 ml 525 ml 420 ml 500 ml Balance -100 ml 570 ml 60 ml 225 ml Intake Oral 240 ml 720 ml 480 ml 725 ml Packed Cells 375 ml Output Urine Total 525 ml 420 ml 500 ml Stool Total 340 ml # Bowel Movements 0 1 Physical Exam GENERAL: In NAD SKIN: Warm and dry. HEAD: Normocephalic. EYES: No scleral icterus. No injection or drainage. NECK: Supple, trachea midline. No JVD or lymphadenopathy. CARDIOVASCULAR: Regular rate and rhythm without murmurs, gallops, or rubs. RESPIRATORY: Breath sounds equal bilaterally. No accessory muscle use. GASTROINTESTINAL: Abdomen soft, non-tender, nondistended. MUSCULOSKELETAL: No cyanosis, or edema. Laboratory Laboratory Tests Test 08/14/16 08/15/16 18:15 05:45 Hemoglobin 8.0 GM/DL 8.4 GM/DL Hematocrit 23.9 % 24.6 % White Blood Count 5.9 TH/MM3 Red Blood Count 2.91 MIL/MM3 Mean Corpuscular Volume 84.5 FL Mean Corpuscular Hemoglobin 28.8 PG Mean Corpuscular Hemoglobin 34.1 % Concent Red Cell Distribution Width 13.8 % Platelet Count 252 TH/MM3 Mean Platelet Volume 9.1 FL Neutrophils (%) (Auto) 68.4 % Lymphocytes (%) (Auto) 19.0 % Monocytes (%) (Auto) 10.4 % Eosinophils (%) (Auto) 1.9 % Basophils (%) (Auto) 0.3 % Neutrophils # (Auto) 4.1 TH/MM3 Lymphocytes # (Auto) 1.1 TH/MM3 Monocytes # (Auto) 0.6 TH/MM3 Eosinophils # (Auto) 0.1 TH/MM3 Basophils # (Auto) 0.0 TH/MM3 CBC Comment DIFF FINAL Differential Comment Imaging Last Impressions Thoracic Spine X-Ray 08/11/16 0000 Signed Impressions: Service Date/Time: Thursday, August 11, 2016 09:27 - CONCLUSION: 1. Mild compression fracture deformity of the T7 vertebral body of indeterminate age. There is no retropulsion. 2. Osteopenia and minimal degenerative change. Mateo Alberts MD Pelvis X-Ray 08/11/16 0000 Signed Impressions: Service Date/Time: Thursday, August 11, 2016 09:23 - CONCLUSION: Negative trauma study. Mateo Alberts MD Head CT 08/11/16 0000 Signed Impressions: Service Date/Time: Thursday, August 11, 2016 09:38 - CONCLUSION: Negative trauma CT. Postsurgical changes are noted. Mateo Alberts MD Chest X-Ray 08/11/16 0000 Signed Impressions: Service Date/Time: Thursday, August 11, 2016 09:24 - CONCLUSION: No acute disease. Mateo Alberts MD Cervical Spine CT 08/11/16 0000 Signed Impressions: Service Date/Time: Thursday, August 11, 2016 09:38 - CONCLUSION: Negative trauma CT. Mateo Alberts MD Assessment and Plan Problem List: (1) Atrial fibrillation with RVR (2) Fall (3) Anemia (4) Diabetes mellitus (5) Hypertension (6) Seizure disorder Assessment and Plan Remains stable. Stays in SR, mild bradycardia on low dose sotalol. EKG w nl QTc. Continue anticoagulation. Increase activity. Living alone, has difficulty ambulating. Recommend to transfer to rehab rather than discharge home. OK to discharge from cardiac standpoint. D/w pt and his family. Problem Qualifiers (1) Fall: Qualified Code: W19.XXXA - Fall, initial encounter (2) Anemia: Qualified Code: D64.9 - Anemia, unspecified type (3) Diabetes mellitus: Qualified Code: E11.8 - Type 2 diabetes mellitus with complication, without long-term current use of insulin Yola Brooke MD August 15, 2016 17:11
== END 2016-08-15 18:25 | disposition home or self-care (01) | DRG 310 ==
LOC: NEPC 08:23 → NEDA 10:35 → HCIS 13:35
PROVIDERS: ADMIT Family Medicine; ATTEND Family Medicine
PROC: 30253N1 (ICD-10-PCS; principal; 2016-08-11)
DX: I48.0 Paroxysmal atrial fibrillation (principal); E11.8 Type 2 diabetes mellitus with unspecified complications; G40.909 Epilepsy, unspecified, not intractable, without status epilepticus; D50.9 Iron deficiency anemia, unspecified; E78.5 Hyperlipidemia, unspecified; I10 Essential (primary) hypertension; J45.909 Unspecified asthma, uncomplicated; K21.9 Gastro-esophageal reflux disease without esophagitis; K59.00 Constipation, unspecified; M85.80 Other specified disorders of bone density and structure, unspecified site; N40.0 Benign prostatic hyperplasia without lower urinary tract symptoms; W19.XXXA Unspecified fall, initial encounter; Y92.009 Unspecified place in unspecified non-institutional (private) residence as the place of occurrence of the external cause; M54.2 Cervicalgia; Z79.01 Long term (current) use of anticoagulants; Z79.899 Other long term (current) drug therapy; F32.9 Major depressive disorder, single episode, unspecified; Z87.891 Personal history of nicotine dependence
CPT/HCPCS: 36430; 70450; 71010; 72020; 72125; 72170; 80048; 80061; 80076; 82272; 82550; 82728; 82948; 83036; 83540; 83550; 83735; 84439; 84443; 84484; 85014; 85018; 85025; 85027; 86850; 86900; 86901; 86920; 93005; 93306; 96365; 96375; 96376; J1650; J1815; J1885; J2405; J7050; P9016